=== PATIENT | male | born 1955 | race African-American/Black ===

== ENCOUNTER 2018-07-23 00:35 | Inpatient (IN) | payer OTHER ==
[2018-07-23 01:23] LABS: INR-International Normal Ratio 1.1; PTT 29.4 SEC (22.9-36.1); Prothrombin Time 14.5 SEC (12.0-14.7)
[2018-07-23 01:24] LABS: Hemoglobin 15.3 g/dL (14.0-18.0); Mean Corpuscular HGB CONC 30.5 g/dL (32.0-36.0); Mean Corpuscular Hemoglobin 28.5 pg (27.0-31.0); Mean Corpuscular Volume 93.4 fL (78.0-98.0); Mean Platelet Volume 6.9 fL (7.4-10.4); Platelet Count 260 thou/uL (130-400); RBC Distribution Width 12.8 % (11.5-14.5); Red Blood Cell (RBC) Count 5.35 mill/uL (4.70-6.10); White Blood Cell (WBC) Count 18.1 thou/uL (4.8-10.8)
[2018-07-23 01:36] LABS: ALT (SGPT) 37 U/L (8-55); AST (SGOT) 27 U/L (5-34); Alkaline Phosphatase 76 U/L (40-150); Anion Gap 17 mmol/L (10-20); BUN (Urea Nitrogen) 14 mg/dL (8.4-25.7); Band 24 % (5-11); Bilirubin, Total 0.3 mg/dL (0.2-1.2); Calc. Creatinine Clearance 0 mL/min (70-130); Calcium 9.5 mg/dL (7.8-10.44); Carbon Dioxide 22 mmol/L (23-31); Chloride 106 mmol/L (98-107); Estimated GFR-MDRD 59; Globulin 4.1 g/dL (2.4-3.5); Glucose 112 mg/dL (80-115); Lipase 75 U/L (8-78); Lymphocytes 4 % (21-51); MDiff Complete? YES; Monocytes 3 % (0-10); Neutrophil 69 % (42-75); Potassium 4.7 mmol/L (3.5-5.1); Protein, Total 8.1 g/dL (5.8-8.1); Sodium 140 mmol/L (136-145)
[2018-07-23] MEDS ORDERED: Piperacillin/Tazobactam 4.5 GM VIAL ONE (01:47)
[2018-07-23] MEDS ORDERED: Ketorolac Tromethamine 30 MG/ML VIAL ONE (02:31)
[2018-07-23] MEDS ORDERED: Clindamycin/D5W 900 mg/50 ml Premix Bag ONE (03:16)
[2018-07-23 04:13] VITALS: BMI 27.0
[2018-07-23] MEDS ORDERED: Acetaminophen 325 MG TAB PO PRN ×2 (05:01→07:31)
[2018-07-23] MEDS ORDERED: Ondansetron PF 4 MG/2 ML Vial IVP PRN (05:01)
[2018-07-23] MEDS ORDERED: Ondansetron ODT 4 MG TAB SL PRN (05:01)
[2018-07-23] MEDS ORDERED: Bisacodyl 10 MG SUPP PR PRN (07:31)
[2018-07-23] MEDS ORDERED: Diabetic Tussin 200 MG/10 ML UDCUP PO PRN (07:31)
[2018-07-23] MEDS ORDERED: Eucerin (Mineral Oil/Petrolatum,White) 30 gm Jar TOP PRN (07:31)
[2018-07-23] MEDS ORDERED: Bisacodyl 5 MG TAB PO PRN (07:31)
[2018-07-23] MEDS ORDERED: hydrALAZINE 20 MG/ML VIAL SLOW IVP PRN (07:31)
[2018-07-23] MEDS ORDERED: Artificial Tears 18 DROP/0.9 ML EA EYE PRN (07:31)
[2018-07-23] MEDS ORDERED: Loratadine 10 MG TAB PO PRN (07:31)
[2018-07-23] MEDS ORDERED: Senokot S 8.6-50 MG TAB PO PRN (07:31)
[2018-07-23] MEDS ORDERED: Zolpidem Tartrate 5 MG TAB PO PRN (07:31)
[2018-07-23] MEDS ORDERED: Calcium Carbonate 500 MG ChewTAB PO PRN (07:31)
[2018-07-23] MEDS ORDERED: Loperamide HCl 2 MG CAP PO PRN ×2 (07:31)
[2018-07-23] MEDS ORDERED: Sodium Chloride 0.65% Nasal 44 ML BOT EA NARE PRN (07:31)
[2018-07-23] MEDS ORDERED: Cepastat Lozenges 1 LOZ PO PRN (07:31)
[2018-07-23] MEDS ORDERED: Morphine 4 MG/ML VIAL SLOW IVP PRN (07:31)
[2018-07-23] MEDS ORDERED: Piperacillin/Tazobactam 4.5 GM in Sodium Chloride 0.9% 100 ML IVPB SCH (08:00)
--- NOTE | 2018-07-23 08:14 | RAD ---
PORTABLE UPRIGHT FRONTAL CHEST: Date: 07/23/18 COMPARISON: None. HISTORY: Chest pain, leg pain. FINDINGS: No pneumothorax, pleural fluid, focal consolidation, or alveolar edema. Heart and mediastinal contour s unremarkable. IMPRESSION: No acute findings. POS: [facility]
[2018-07-23] MEDS: Piperacillin/Tazobactam 4.5 GM in Sodium Chloride 0.9% 100 ML IVPB SCH ×3 (09:00→20:58)
[2018-07-23] MEDS: Saccharomyces boulardii 250 MG CAP PO SCH (09:00)
[2018-07-23] MEDS ORDERED: DARUNAVIR ETHANOLATE PO SCH (09:00)
[2018-07-23] MEDS: DULoxetine 60 MG CAP PO SCH (09:00)
[2018-07-23] MEDS: Enoxaparin Sodium 40 MG/0.4 ML SYRINGE SC SCH (09:00)
[2018-07-23] MEDS: Sodium Chloride 0.9% 1,000 ML IV SCH ×3 (09:00→23:27)
[2018-07-23] MEDS: Famotidine 20 MG TAB PO SCH ×2 (09:00→20:58)
[2018-07-23] MEDS ORDERED: Vancomycin HCl 750 MG in Sodium Chloride 0.9% 250 ML 250 ML IVPB SCH (09:00)
[2018-07-23] MEDS: Raltegravir Potassium 400 MG TAB PO SCH (09:00)
[2018-07-23] MEDS: HYDROcodone/Acetaminophen 10/325 mg Tablet PO PRN ×3 (09:04→18:20)
[2018-07-23 09:13] LABS: CKMB 0.9 ng/mL (0-6.6); Troponin I Less than 0.010 ng/mL (< 0.028)
[2018-07-23] MEDS ORDERED: Sodium Chloride 0.9% 500 ML IV SCH (09:30)
[2018-07-23 12:08] LABS: CRP (Inflammatory) 6.44 mg/dL (= or < 0.5); Uric Acid 5.8 mg/dL (3.5-7.2)
--- NOTE | 2018-07-23 12:40 | HP ---
PRIMARY CARE PHYSICIAN: The patient is from [facility], [facility] Call admission. REASON FOR ADMISSION: Sepsis, hypotension, chest pain, and cellulitis. HISTORY OF PRESENT ILLNESS: A 63-year-old -[place] male, who has underlying history of HIV, dyslipidemia, benign enlargement of prostate, and hypotension, who came to emergency room last night with complaint of chest pain. The patient's chest pain is left-sided, pleuritic in nature, sharp dull ache, 5/10 in intensity associated with cough. He denies any diaphoresis, nausea, vomiting, palpitation, and syncope. In the emergency room, he was initially tachycardic and hypotensive with tachycardia. Pulse 120 and blood pressure 95/70. He was also febrile 101.3. Since yesterday, the patient was also having right-sided leg pain. He was not able to put weight on his right foot. He was having extreme amount of pain. He denies any calf tenderness. He denies any immobilization. He denies any hemoptysis. He denies any orthopnea, PND, or leg swelling. PAST MEDICAL HISTORY: HIV, chronic hep C, hypertension, Kaposi sarcoma, dyslipidemia, asthma, osteoarthritis, chronic low back pain, and gastroesophageal reflux disease. PAST SURGICAL HISTORY: The patient is not able to provide any previous surgical history. PAST PSYCHIATRIC HISTORY: Reviewed and negative. SOCIAL HISTORY: The patient lives at [facility]. No history of tobacco, alcohol, or illicit drug abuse. FAMILY HISTORY: The patient denies any strong family history of coronary artery disease, stroke, or cancer. ALLERGIES: CHADD INHIBITOR, IBUPROFEN, AND SULFA DRUGS. CURRENT HOME MEDICATIONS: 1. Amlodipine 5 mg daily. 2. Dapsone 100 mg daily. 3. Prezista 1 tablet daily. 4. Cymbalta 60 mg p.o. daily. 5. Lasix 20 mg daily. 6. Pravastatin 40 mg p.o. at bedtime. 7. Raltegravir 800 mg p.o. daily. 8. Ritonavir 1 capsule p.o. daily. 9. Tenofovir 300 mg p.o. daily. 10. Terazosin 2 mg p.o. daily. EMERGENCY ROOM COURSE: The patient received Tylenol, clindamycin, Toradol, vancomycin, Zosyn, and IV fluid. REVIEW OF SYSTEMS: REVIEW OF SYSTEMS: CONSTITUTIONAL: Negative for weight loss or gain, ability to conduct usual activities. SKIN: Negative for rash, itching. EYES: Negative for double vision, pain. ENT/MOUTH: Negative for nose bleeding, neck stiffness, pain, tenderness. CARDIOVASCULAR: Negative for palpitations, dyspnea on exertion, orthopnea. RESPIRATORY: Negative for shortness of breath, wheezing, cough, hemoptysis, fever or night sweats. GASTROINTESTINAL: Negative for poor appetite, abdominal pain, heartburn, nausea, vomiting, constipation, or diarrhea. GENITOURINARY: Negative for urgency, frequency, dysuria, nocturia. MUSCULOSKELETAL: Negative for pain, swelling. NEUROLOGIC/PSYCHIATRIC: Negative for anxiety, depression. ALLERGY/IMMUNOLOGIC: Negative for skin rash, bleeding tendency. Please see my HPI for pertinent positives and negatives. All other review of systems reviewed and negative except as mentioned in the HPI. PHYSICAL EXAMINATION: VITAL SIGNS: Currently , lowest blood pressure after admission 78/58, pulse 75, respiratory rate 20, saturation 93% on room air, temperature 98.1, but in the emergency room T maximum 101.3. GENERAL: The patient is currently alert, awake. No obvious acute distress. HEENT: Head; normocephalic and atraumatic. Eyes; pupils are round, reactive to light. Extraocular muscle intact. ENT, oropharynx within normal limits. Moist mucous membranes. No oral lesion. No pharyngeal erythema. No exudate. NECK: Supple. No JVD. No thyromegaly. No carotid bruit. LUNGS: Clear to auscultation without any rhonchi or rales. CARDIAC: S1 and S2 regular. No murmur. No gallop. No rub. ABDOMEN: Soft. Bowel sounds present. Nontender. Nondistended. No organomegaly. No mass. No suprapubic tenderness. BACK: Unremarkable. No CVA tenderness. EXTREMITIES: Upper extremities, passive movement of all joints are normal. Lower extremity, no edema. The patient does have mild tenderness in the right foot and right lower extremity with skin rash noted. PSYCHIATRIC: Normal affect. NEUROLOGIC: Nonfocal examination. SIGNIFICANT LABORATORY DATA: CBC; WBC 18.1, hemoglobin 15.3, and platelet 260 with bandemia. INR 1.1. BMP; sodium 140, potassium 4.7, chloride 106, carbon dioxide 22, BUN 14, creatinine 1.46, glucose 112, and calcium 9.5. Lactic acid 3.0. LFT; AST 27, ALT 37, alkaline phosphatase 76, albumin 4.0, lipase 75, cortisols 14.1. Cardiac enzyme negative x2. BNP 20.2. LFT normal. ASSESSMENT AND PLAN: 1. Sepsis with acute organ dysfunction, source of infection is unclear at this point, but suspecting cellulitis. The patient has leukocytosis with bandemia, lactic acidosis, acute kidney failure, and high-grade fever with tachycardia and hypotension on admission. 2. Sepsis associated with hypotension, most likely related with hypotension, but the patient is also complaining of chest pain and that is why we will rule out thromboembolic disorder. We will do CT angiography. His EKG is showing sinus tachycardia and repeat EKG is not showing any ischemic changes. His cardiac enzymes are negative and BNP is normal. 3. Acute kidney injury. The patient will be given IV fluid and we will monitor renal function. 4. Lactic acidosis. We will repeat lactic acid level tomorrow, likely due to sepsis. 5. Human immunodeficiency virus. The patient's HIV medication will be continued as per [facility] and we will consult Dr. Zaldivar for his opinion. 6. Dyslipidemia. Continue pravastatin 40 mg p.o. at bedtime. 7. Peripheral neuropathy. Continue Cymbalta 60 mg p.o. daily. 8. Hypertension, but currently low blood pressure. We will hold on antihypertensive medication. 9. Deep venous thrombosis prophylaxis. Lovenox 40 mg subcu daily prophylaxis, Pepcid 20 mg p.o. daily. CODE STATUS: The patient is full code. DISPOSITION PLAN: Based on clinical course, we will consult Dr. Zaldivar. We are expecting the patient's stay in hospital more than 2 midnights. Plan of care discussed with the patient in detail and he expressed his understanding. Job ID: [id number]
[2018-07-23 13:09] LABS: CKMB 0.8 ng/mL (0-6.6); Troponin I Less than 0.010 ng/mL (< 0.028)
--- NOTE | 2018-07-23 13:43 | CT ---
CT PULMONARY ANGIOGRAM WITH IV CONTRAST AND 3D POSTPROCESSING: Date: 07/23/18 HISTORY: Chest pain. FINDINGS: No filling defects are seen in the contrast opacified pulmonary vasculature to suggest pulmonary embo lism. The thoracic aorta is opacified without aneurysm or dissection. No pleural or pericardial effus ions are seen. Bibasilar infiltrates versus atelectatic changes are present. No pneumothoraces are id entified. There is bilateral gynecomastia. Mild degenerative changes are present in the spine. IMPRESSION: No CT evidence of pulmonary embolism. POS: [facility]
--- NOTE | 2018-07-23 14:11 | EKG ---
Test Reason : C/O CHEST PAIN Blood Pressure : / mmHG Vent. Rate : 082 BPM Atrial Rate : 082 BPM P-R Int : 180 ms QRS Dur : 086 ms QT Int : 392 ms P-R-T Axes : 052 055 067 degrees QTc Int : 457 ms Normal sinus rhythm Normal ECG When compared with ECG of 30-JUL-2010 14:09, No significant change was found Confirmed by DR. Mark GOMEZ ([id number]) on 07/23/2018 2:11:26 PM Referred By: ENOCH Confirmed By:DR. Mark GOMEZ
[2018-07-23 16:06] LABS: Troponin I Less than 0.010 ng/mL (< 0.028)
[2018-07-23] MEDS ORDERED: Iopamidol 370 76% 100 ML VIAL ONE (16:59)
[2018-07-23] MEDS: Ondansetron ODT 4 MG TAB PO PRN (20:58)
[2018-07-23] MEDS: Atorvastatin Calcium 10 MG TAB PO SCH (20:59)
[2018-07-24] MEDS: HYDROcodone/Acetaminophen 10/325 mg Tablet PO PRN ×4 (00:25→18:21)
[2018-07-24] MEDS: Piperacillin/Tazobactam 4.5 GM in Sodium Chloride 0.9% 100 ML IVPB SCH (02:29)
[2018-07-24] MEDS: Ondansetron ODT 4 MG TAB PO PRN ×2 (02:33→20:52)
[2018-07-24] MEDS ORDERED: Vancomycin HCl 1.75 GM in Sodium Chloride 0.9% 500 ML IVPB SCH (03:00)
[2018-07-24 06:12] LABS: #Lymphocytes 1.2 thou/uL (1.20-3.40); #Monocytes 0.8 thou/uL (0.11-0.59); #Neutrophils 13.1 thou/uL (1.40-6.50); %Basophils 0.1 % (0.0-1.0); %Eosinophils 0.2 % (0.0-10.0); %Lymphocytes 7.7 % (21.0-51.0); %Monocytes 5.4 % (0.0-10.0); %Neutrophils 86.7 % (42.0-75.0); Hemoglobin 13.3 g/dL (14.0-18.0); Mean Corpuscular HGB CONC 32.1 g/dL (32.0-36.0); Mean Corpuscular Hemoglobin 30.3 pg (27.0-31.0); Mean Corpuscular Volume 94.3 fL (78.0-98.0); Mean Platelet Volume 7.3 fL (7.4-10.4); Platelet Count 221 thou/uL (130-400); RBC Distribution Width 12.9 % (11.5-14.5); Red Blood Cell (RBC) Count 4.39 mill/uL (4.70-6.10); White Blood Cell (WBC) Count 15.1 thou/uL (4.8-10.8)
[2018-07-24 06:44] LABS: ALT (SGPT) 28 U/L (8-55); AST (SGOT) 22 U/L (5-34); Alkaline Phosphatase 60 U/L (40-150); Anion Gap 11 mmol/L (10-20); BUN (Urea Nitrogen) 13 mg/dL (8.4-25.7); Bilirubin, Total 0.3 mg/dL (0.2-1.2); Calc. Creatinine Clearance 68 mL/min (70-130); Calcium 7.9 mg/dL (7.8-10.44); Carbon Dioxide 20 mmol/L (23-31); Chloride 108 mmol/L (98-107); Estimated GFR-MDRD 60; Glucose 139 mg/dL (80-115); Sodium 135 mmol/L (136-145)
[2018-07-24] MEDS: Sodium Chloride 0.9% 1,000 ML IV SCH ×3 (08:22→20:52)
[2018-07-24] MEDS: cefTRIAXone\\ROCEPHIN 1 GM in Sodium Chloride 0.9% 100 ML IVPB SCH (08:24)
[2018-07-24] MEDS: Raltegravir Potassium 400 MG TAB PO SCH (08:39)
[2018-07-24] MEDS: Saccharomyces boulardii 250 MG CAP PO SCH (08:39)
[2018-07-24] MEDS: DULoxetine 60 MG CAP PO SCH (08:41)
[2018-07-24] MEDS: Famotidine 20 MG TAB PO SCH ×2 (08:41→20:51)
[2018-07-24] MEDS: Enoxaparin Sodium 40 MG/0.4 ML SYRINGE SC SCH (08:42)
--- NOTE | 2018-07-24 10:39 | PDOC.PN ---
- Subjective Encounter Start Date: 07/24/18 Encounter Start Time: 07:00 -: old records requested/rev he has more foot pain, he has fever, has cough Patient seen and examined. No overnight events - Objective Resuscitation Status - Order Detail: 07/23/18 07:26 Resuscitation Status Routine Resuscitation Status: FULL: Full Resuscitation MAR Reviewed: Yes Vital Signs & Weight: Vital Signs (12 hours) Temp Pulse Resp BP Pulse Ox 07/24/18 08:01 99.8 F H 89 20 98/73 94 L 07/24/18 05:32 99.6 F 07/24/18 04:00 100.2 F H 97 19 95/55 L 90 L 07/24/18 03:47 93 L 07/24/18 00:00 98.7 F 90 19 109/75 93 L Weight Weight 199 lb 6.4 oz I&O: 07/23/18 07/24/18 07/25/18 06:59 06:59 06:59 Intake Total 2500 Balance 2500 Result Diagrams: 07/24/18 05:28 07/24/18 05:28 EKG Reviewed by me: Yes (nsr) Phys Exam - Physical Examination Constitutional: NAD HEENT: PERRLA, moist MMs, sclera anicteric Neck: no JVD, supple Respiratory: no wheezing, no rales, no rhonchi Cardiovascular: RRR, no significant murmur, no rub Gastrointestinal: soft, non-tender, no distention, positive bowel sounds Musculoskeletal: no edema, pulses present right ankle swelling and cellulitis, Neurological: non-focal, normal sensation, moves all 4 limbs Lymphatic: no nodes Psychiatric: normal affect, A&O x 3 Skin: no rash, normal turgor Dx/Plan (1) Acute kidney injury Code(s): N17.9 - ACUTE KIDNEY FAILURE, UNSPECIFIED Status: Acute (2) Bacteremia due to Streptococcus Code(s): R78.81 - BACTEREMIA; B95.5 - UNSP STREPTOCOCCUS THE CAUSE OF DISEASES CLASSD ELSWHR Status: Acute (3) Cellulitis of extremity Code(s): L03.119 - CELLULITIS OF UNSPECIFIED PART OF LIMB Status: Acute Qualifiers: Site of cellulitis of extremity: lower extremity Laterality: right Qualified Code(s): L03.115 - Cellulitis of right lower limb Comment: ankle and foot (4) Chest pain Code(s): R07.9 - CHEST PAIN, UNSPECIFIED Status: Resolved (5) Hypotension Status: Acute (6) Lactic acidosis Code(s): E87.2 - ACIDOSIS Status: Acute (7) Sepsis with acute organ dysfunction Code(s): A41.9 - SEPSIS, UNSPECIFIED ORGANISM; R65.20 - SEVERE SEPSIS WITHOUT SEPTIC SHOCK Status: Acute (8) Dyslipidemia Code(s): E78.5 - HYPERLIPIDEMIA, UNSPECIFIED Status: Chronic (9) HIV (human immunodeficiency virus infection) Code(s): B20 - HUMAN IMMUNODEFICIENCY VIRUS [HIV] DISEASE Status: Chronic (10) Hypertension Code(s): I10 - ESSENTIAL (PRIMARY) HYPERTENSION Status: Chronic (11) Peripheral neuropathy Code(s): G62.9 - POLYNEUROPATHY, UNSPECIFIED Status: Chronic - Plan cont current plan of care, continue antibiotics * continue IVF * change antibiotics to rocephin and levaquin * ID to see * get xray right ankle * pain control * medication reviewed as below * symptomatic treatment * repeat labs tomorrow. Review of Systems - Review of Systems Constitutional: fever. negative: chills, sweats, weakness, malaise, other ENT: negative: Ear Pain, Ear Discharge, Nose Pain, Nose Discharge, Nose Congestion, Mouth Pain, Mouth Swelling, Throat Pain, Throat Swelling, Other Respiratory: negative: Cough, Dry, Shortness of Breath, Hemoptysis, SOB with Excertion, Pleuritic Pain, Sputum, Wheezing Cardiovascular: negative: chest pain, palpitations, orthopnea, paroxysmal nocturnal dyspnea, edema, light headedness, other Gastrointestinal: negative: Nausea, Vomiting, Abdominal Pain, Diarrhea, Constipation, Melena, Hematochezia, Other Genitourinary: negative: Dysuria, Frequency, Incontinence, Hematuria, Retention , Other Musculoskeletal: Leg Pain, Foot Pain. negative: Neck Pain, Shoulder Pain, Arm Pain, Back Pain, Hand Pain, Other - Medications/Allergies Allergies/Adverse Reactions: Allergies Allergy/AdvReac Type Severity Reaction Status Date / Time CHADD Inhibitors Allergy Verified 07/23/18 05:00 ibuprofen Allergy Verified 07/23/18 05:00 Sulfa (Sulfonamide Allergy Verified 07/23/18 05:00 Antibiotics) Medications: Current Medications Acetaminophen (Tylenol) 650 mg PO Q4H PRN PRN Reason: Headache/Fever/Mild Pain (1-3) Last Admin: 07/24/18 02:46 Dose: 650 mg Hydrocodone Bitart/Acetaminophen (Peck 10/325) 1 tab PO Q4H PRN PRN Reason: Moderate Pain (4-6) Last Admin: 07/24/18 06:19 Dose: 1 tab Artificial Tears (Tears Naturale) 2 drop EA EYE PRN PRN PRN Reason: Dry Eyes Atorvastatin Calcium (Lipitor) 10 mg PO [facility] Last Admin: 07/23/18 20:59 Dose: 10 mg Bisacodyl (Dulcolax) 10 mg HI DAILYPRN PRN PRN Reason: Constipation Bisacodyl (Dulcolax) 10 mg PO DAILYPRN PRN PRN Reason: Constipation Calcium Carbonate (Tums) 1,000 mg PO Q4H PRN PRN Reason: Heartburn or Indigestion Dapsone (Dapsone) 100 mg PO DAILY [facility] Last Admin: 07/24/18 08:41 Dose: 100 mg Duloxetine HCl (Cymbalta) 60 mg PO DAILY [facility] Last Admin: 07/24/18 08:41 Dose: 60 mg Enoxaparin Sodium (Lovenox) 40 mg SC 0900 [facility] Last Admin: 07/24/18 08:42 Dose: 40 mg Famotidine (Pepcid) 20 mg PO BID [facility] Last Admin: 07/24/18 08:41 Dose: 20 mg Guaifenesin (Robitussin Sf) 200 mg PO Q4H PRN PRN Reason: Cough Hydralazine HCl (Apresoline) 10 mg SLOW IVP Q4H PRN PRN Reason: SBP > 180 and HR < 70 Sodium Chloride (Normal Saline 0.9%) 1,000 mls @ 125 mls/hr IV .Q8H [facility] Last Admin: 07/24/18 08:22 Dose: 1,000 mls Ceftriaxone Sodium 1 gm/ (Sodium Chloride) 100 mls @ 200 mls/hr IVPB 0900 [facility] Last Admin: 07/24/18 08:24 Dose: 100 mls Levofloxacin 500 mg/ Device 100 mls @ 100 mls/hr IVPB 0800 [facility] Last Admin: 07/24/18 08:25 Dose: 100 mls Loperamide HCl (Imodium) 2 mg PO PRN PRN PRN Reason: Diarrhea/Loose Stools Loratadine (Claritin) 10 mg PO DAILYPRN PRN PRN Reason: Sinus Symptoms Mineral Oil/White Petrolatum (Eucerin Cream) 0 gm TOP BIDPRN PRN PRN Reason: Dry Skin Morphine Sulfate (Morphine) 4 mg SLOW IVP Q4H PRN PRN Reason: Severe Pain (7-10) Ondansetron HCl (Zofran Odt) 4 mg PO Q6H PRN PRN Reason: Nausea/Vomiting Last Admin: 07/24/18 02:33 Dose: 4 mg Ondansetron HCl (Zofran) 4 mg IVP Q6H PRN PRN Reason: Nausea/Vomiting Raltegravir (Isentress) 800 mg PO DAILY [facility] Last Admin: 07/24/18 08:39 Dose: 800 mg Ritonavir (Norvir) 100 mg PO DAILY [facility] Last Admin: 07/24/18 08:42 Dose: 100 mg Saccharomyces Boulardii (Florastor) 250 mg PO DAILY [facility] Last Admin: 07/24/18 08:39 Dose: 250 mg Senna/Docusate Sodium (Senokot S) 2 tab PO BIDPRN PRN PRN Reason: Constipation Sodium Chloride ([place] Nasal [place] 0.65%) 0 ml EA NARE QIDPRN PRN PRN Reason: Nasal Congestion Tenofovir Disoproxil Fumarate (Viread) 300 mg PO DAILY [facility] Last Admin: 07/24/18 08:39 Dose: 300 mg Throat Lozenges (Cepastat Lozenges) 1 luis PO Q2H PRN PRN Reason: Sore Throat Zolpidem Tartrate (Ambien) 5 mg PO HSPRN PRN PRN Reason: Insomnia
--- NOTE | 2018-07-24 11:53 | RAD ---
THREE VIEWS RIGHT ANKLE: Comparison: None. History: Right ankle pain and swelling. FINDINGS: Three views of the right ankle shows diffuse soft tissue swelling, more prominent medially. There is no evidence of fracture or dislocation. No degenerative changes are seen. IMPRESSION: Soft tissue swelling without underlying osseous abnormality. POS: [facility]
[2018-07-24 12:30] LABS: Lactic Acid 1.5 mmol/L (0.5-2.2)
[2018-07-24] MEDS: Clindamycin/D5W 900 MG in Premix Bag 1 BAG IVPB SCH (18:21)
--- NOTE | 2018-07-24 19:16 | CON ---
DATE OF CONSULTATION: 07/24/2018 REASON FOR CONSULTATION: HIV with cellulitis. HISTORY OF PRESENT ILLNESS: A 63-year-old, who has a history of chronic hep C with no prior treatment; chronic HIV infection, on adequate anti-retroviral therapy, unknown CD4 cell count, viral load, Kaposi sarcoma in the past; asthma; osteoarthritis; and GERD, who presented with pain in the right lower extremity for the past few days, some chest pain, some cough, general malaise, tachycardia, and hypotension. Initial exam showed respiratory rate of 20, pulse 75, temperature 98.1, and the maximum temperature in the emergency room was 101.3, initially he did not appear in distress. Lungs were clear. Heart exam normal. Abdomen was soft. Lower extremities with tenderness in the right foot, right lower extremity with erythema. LABORATORY DATA: White cell count 18,000 and hemoglobin 15. Creatinine was 1.46. Lactic acid 3. The patient has been treated with pain medication, ceftriaxone and levofloxacin. He is also on his anti-retroviral therapy. Currently, he is lying in bed and is still with quite a bit of pain in the right lower extremity. No headaches. No visual symptoms, sore throat, odynophagia, or dysphagia. No cough or sputum production. No chest pain. No abdominal pain or diarrhea. No genitourinary symptoms. No neurological symptoms. PAST MEDICAL HISTORY: Chronic hep C with no history of treatment; chronic HIV infection with adequate anti-retroviral therapy, but unknown CD4 cell count, viral load; previous Kaposi sarcoma; asthma; osteoarthritis; and low back pain. SOCIAL HISTORY: [facility] No history of smoking. FAMILY HISTORY: Noncontributory. ALLERGIES: CHADD INHIBITOR, IBUPROFEN, AND SULFA DRUGS. CURRENT MEDICATIONS: I have discussed above, in addition to antibiotics he is on tenofovir, Isentress. PHYSICAL EXAMINATION: VITAL SIGNS: T-max 100.2, BP 120/90, pulse 91, respirations 18, and O2 saturation 90% to 94%. SKIN: Shows the area of erythema of the right ankle and leg with swelling. He has a drop foot on the right side. Range of motion of the ankle elicits quite a bit of pain. He has areas of onycholysis, hyperkeratosis in the lower extremities. The patient has a peripheral IV access and is voiding in the urinal. No lymphadenopathy. HEENT: Ocular movements conjugate. Oral cavity moist with still quite a few teeth in place with some decay. NECK: Supple. Jugular venous distention. No thyromegaly. LUNGS: Symmetric. Clear breath sounds. HEART: S1 and S2. Regular rate. No S3 or S4. ABDOMEN: Soft, not distended or tender. No ascites. No bladder distention. No genital abnormalities. EXTREMITIES: Pulses are 1+ in dorsalis pedis. Cognitive functions normal. LABORATORY DATA: White cell count down to 15,000, hemoglobin 13, and platelets 221. Sodium 135, creatinine 1.45 with normal liver profile. Albumin 3.0. Microbiology with one set of blood cultures with beta-hemolytic Streptococcus. ASSESSMENT: Chronic hepatitis C and human immunodeficiency virus infection, now with what appears to be a beta-hemolytic Streptococcus cellulitis. Septic arthritis of right ankle is not completely ruled out. Continue Rocephin and add clindamycin. Discontinue levofloxacin. Monitor progress. May need arthrocentesis or MRI of the extremity depending on clinical progress. No evidence of necrotizing features at this point in time. Job ID: [id number]
[2018-07-24] MEDS: Atorvastatin Calcium 10 MG TAB PO SCH (20:51)
[2018-07-25] MEDS: Clindamycin/D5W 900 MG in Premix Bag 1 BAG IVPB SCH ×3 (01:34→17:38)
[2018-07-25] MEDS: HYDROcodone/Acetaminophen 10/325 mg Tablet PO PRN ×5 (01:39→21:24)
[2018-07-25 04:44] LABS: Anion Gap 11 mmol/L (10-20); BUN (Urea Nitrogen) 10 mg/dL (8.4-25.7); CRP (Inflammatory) 20.67 mg/dL (= or < 0.5); Calc. Creatinine Clearance 83 mL/min (70-130); Calcium 8.7 mg/dL (7.8-10.44); Carbon Dioxide 20 mmol/L (23-31); Chloride 107 mmol/L (98-107); Estimated GFR-MDRD 75; Glucose 99 mg/dL (80-115); Potassium 4.2 mmol/L (3.5-5.1); Sodium 134 mmol/L (136-145)
[2018-07-25 05:27] LABS: #Eosinphils 0.1 thou/uL (0.0-0.7); #Lymphocytes 1.2 thou/uL (1.20-3.40); #Monocytes 0.7 thou/uL (0.11-0.59); #Neutrophils 9.9 thou/uL (1.40-6.50); %Basophils 0.2 % (0.0-1.0); %Eosinophils 0.7 % (0.0-10.0); %Monocytes 5.8 % (0.0-10.0); %Neutrophils 83.2 % (42.0-75.0); Hemoglobin 13.9 g/dL (14.0-18.0); Mean Corpuscular HGB CONC 31.6 g/dL (32.0-36.0); Mean Corpuscular Hemoglobin 29.2 pg (27.0-31.0); Mean Corpuscular Volume 92.4 fL (78.0-98.0); Mean Platelet Volume 7.3 fL (7.4-10.4); Platelet Count 187 thou/uL (130-400); RBC Distribution Width 12.7 % (11.5-14.5); RBC Morphology Normal; Red Blood Cell (RBC) Count 4.77 mill/uL (4.70-6.10); White Blood Cell (WBC) Count 11.9 thou/uL (4.8-10.8)
[2018-07-25] MEDS: Saccharomyces boulardii 250 MG CAP PO SCH (08:56)
[2018-07-25] MEDS: DULoxetine 60 MG CAP PO SCH (08:56)
[2018-07-25] MEDS: Famotidine 20 MG TAB PO SCH ×2 (08:56→21:23)
[2018-07-25] MEDS: Enoxaparin Sodium 40 MG/0.4 ML SYRINGE SC SCH (08:56)
[2018-07-25] MEDS: Raltegravir Potassium 400 MG TAB PO SCH (09:17)
[2018-07-25] MEDS: cefTRIAXone\\ROCEPHIN 1 GM in Sodium Chloride 0.9% 100 ML IVPB SCH (09:18)
[2018-07-25] MEDS: Ondansetron ODT 4 MG TAB PO PRN (09:32)
[2018-07-25] MEDS ORDERED: Tamsulosin HCl 0.4 MG CAP PO SCH (10:00)
--- NOTE | 2018-07-25 10:30 | PDOC.PN ---
- Subjective Encounter Start Date: 07/25/18 Encounter Start Time: 07:00 pt has frequency of urination and hesitancy, no retention BP has improved still has leg pain - Objective Resuscitation Status - Order Detail: 07/23/18 07:26 Resuscitation Status Routine Resuscitation Status: FULL: Full Resuscitation MAR Reviewed: Yes Vital Signs & Weight: Vital Signs (12 hours) Temp Pulse Resp BP Pulse Ox 07/25/18 07:50 98.6 F 89 16 120/86 90 L 07/25/18 03:58 98.6 F 101 H 20 149/93 H 92 L 07/25/18 00:00 99.1 F 102 H 19 150/80 H 93 L Weight Weight 199 lb 6.4 oz I&O: 07/24/18 07/25/18 07/26/18 06:59 06:59 06:59 Intake Total 2500 Balance 2500 Result Diagrams: 07/25/18 04:22 07/25/18 04:22 EKG Reviewed by me: Yes (nsr) Phys Exam - Physical Examination Constitutional: NAD HEENT: PERRLA, moist MMs, sclera anicteric Neck: no JVD, supple Respiratory: no wheezing, no rales, no rhonchi Cardiovascular: RRR, no significant murmur, no rub Gastrointestinal: soft, non-tender, no distention, positive bowel sounds Musculoskeletal: no edema, pulses present right leg cellulitis Neurological: non-focal, normal sensation, moves all 4 limbs Lymphatic: no nodes Psychiatric: normal affect, A&O x 3 Skin: no rash, normal turgor Dx/Plan (1) Acute kidney injury Code(s): N17.9 - ACUTE KIDNEY FAILURE, UNSPECIFIED Status: Acute (2) Bacteremia due to Streptococcus Code(s): R78.81 - BACTEREMIA; B95.5 - UNSP STREPTOCOCCUS THE CAUSE OF DISEASES CLASSD ELSWHR Status: Acute (3) Cellulitis of extremity Code(s): L03.119 - CELLULITIS OF UNSPECIFIED PART OF LIMB Status: Acute Qualifiers: Site of cellulitis of extremity: lower extremity Laterality: right Qualified Code(s): L03.115 - Cellulitis of right lower limb Comment: ankle and foot (4) Chest pain Code(s): R07.9 - CHEST PAIN, UNSPECIFIED Status: Resolved (5) Hypotension Status: Acute (6) Lactic acidosis Code(s): E87.2 - ACIDOSIS Status: Acute (7) Sepsis with acute organ dysfunction Code(s): A41.9 - SEPSIS, UNSPECIFIED ORGANISM; R65.20 - SEVERE SEPSIS WITHOUT SEPTIC SHOCK Status: Acute (8) Dyslipidemia Code(s): E78.5 - HYPERLIPIDEMIA, UNSPECIFIED Status: Chronic (9) HIV (human immunodeficiency virus infection) Code(s): B20 - HUMAN IMMUNODEFICIENCY VIRUS [HIV] DISEASE Status: Chronic (10) Hypertension Code(s): I10 - ESSENTIAL (PRIMARY) HYPERTENSION Status: Chronic (11) Peripheral neuropathy Code(s): G62.9 - POLYNEUROPATHY, UNSPECIFIED Status: Chronic (12) BPH with obstruction/lower urinary tract symptoms Code(s): N40.1 - BENIGN PROSTATIC HYPERPLASIA WITH LOWER URINARY TRACT SYMP; N13.8 - OTHER OBSTRUCTIVE AND REFLUX UROPATHY Status: Acute (13) Chronic hepatitis C Code(s): B18.2 - CHRONIC VIRAL HEPATITIS C Status: Chronic - Plan cont current plan of care, continue antibiotics * keep leg elevated on right side * chech UA and start empiric flomax * continue IV antibiotics as per ID * DC tele * DC IVF * transfer to medical * pain control * medication reviewed as below * symptomatic treatment. Review of Systems - Review of Systems ENT: negative: Ear Pain, Ear Discharge, Nose Pain, Nose Discharge, Nose Congestion, Mouth Pain, Mouth Swelling, Throat Pain, Throat Swelling, Other Respiratory: negative: Cough, Dry, Shortness of Breath, Hemoptysis, SOB with Excertion, Pleuritic Pain, Sputum, Wheezing Cardiovascular: negative: chest pain, palpitations, orthopnea, paroxysmal nocturnal dyspnea, edema, light headedness, other Gastrointestinal: negative: Nausea, Vomiting, Abdominal Pain, Diarrhea, Constipation, Melena, Hematochezia, Other Genitourinary: Frequency. negative: Dysuria, Incontinence, Hematuria, Retention , Other Musculoskeletal: Leg Pain. negative: Neck Pain, Shoulder Pain, Arm Pain, Back Pain, Hand Pain, Foot Pain, Other - Medications/Allergies Allergies/Adverse Reactions: Allergies Allergy/AdvReac Type Severity Reaction Status Date / Time CHADD Inhibitors Allergy Verified 07/23/18 05:00 ibuprofen Allergy Verified 07/23/18 05:00 Sulfa (Sulfonamide Allergy Verified 07/23/18 05:00 Antibiotics) Medications: Current Medications Acetaminophen (Tylenol) 650 mg PO Q4H PRN PRN Reason: Headache/Fever/Mild Pain (1-3) Last Admin: 07/24/18 02:46 Dose: 650 mg Hydrocodone Bitart/Acetaminophen ([place] 10/325) 1 tab PO Q4H PRN PRN Reason: Moderate Pain (4-6) Last Admin: 07/25/18 07:50 Dose: 1 tab Artificial Tears (Tears Naturale) 2 drop EA EYE PRN PRN PRN Reason: Dry Eyes Last Admin: 07/25/18 08:57 Dose: 2 drop Atorvastatin Calcium (Lipitor) 10 mg PO HS [facility] Last Admin: 07/24/18 20:51 Dose: 10 mg Bisacodyl (Dulcolax) 10 mg [place] DAILYPRN PRN PRN Reason: Constipation Bisacodyl (Dulcolax) 10 mg PO DAILYPRN PRN PRN Reason: Constipation Calcium Carbonate (Tums) 1,000 mg PO Q4H PRN PRN Reason: Heartburn or Indigestion Dapsone (Dapsone) 100 mg PO DAILY [facility] Last Admin: 07/25/18 08:56 Dose: 100 mg Duloxetine HCl (Cymbalta) 60 mg PO DAILY [facility] Last Admin: 07/25/18 08:56 Dose: 60 mg Enoxaparin Sodium (Lovenox) 40 mg SC 0900 [facility] Last Admin: 07/25/18 08:56 Dose: 40 mg Famotidine (Pepcid) 20 mg PO BID [facility] Last Admin: 07/25/18 08:56 Dose: 20 mg Guaifenesin (Robitussin Sf) 200 mg PO Q4H PRN PRN Reason: Cough Hydralazine HCl (Apresoline) 10 mg SLOW IVP Q4H PRN PRN Reason: SBP > 180 and HR < 70 Ceftriaxone Sodium 1 gm/ (Sodium Chloride) 100 mls @ 200 mls/hr IVPB 0900 [facility] Last Admin: 07/25/18 09:18 Dose: 100 mls Clindamycin Phosphate/Dextrose (900 mg/ Device) 50 mls @ 100 mls/hr IVPB 0200, 1000,1800 [facility] Last Admin: 07/25/18 10:19 Dose: 50 mls Loperamide HCl (Imodium) 2 mg PO PRN PRN PRN Reason: Diarrhea/Loose Stools Loratadine (Claritin) 10 mg PO DAILYPRN PRN PRN Reason: Sinus Symptoms Mineral Oil/White Petrolatum (Eucerin Cream) 0 gm TOP BIDPRN PRN PRN Reason: Dry Skin Morphine Sulfate (Morphine) 4 mg SLOW IVP Q4H PRN PRN Reason: Severe Pain (7-10) Ondansetron HCl (Zofran Odt) 4 mg PO Q6H PRN PRN Reason: Nausea/Vomiting Last Admin: 07/25/18 09:32 Dose: 4 mg Ondansetron HCl (Zofran) 4 mg IVP Q6H PRN PRN Reason: Nausea/Vomiting Raltegravir (Isentress) 800 mg PO DAILY [facility] Last Admin: 07/25/18 09:17 Dose: 800 mg Ritonavir (Norvir) 100 mg PO DAILY [facility] Last Admin: 07/25/18 08:57 Dose: 100 mg Saccharomyces Boulardii (Florastor) 250 mg PO DAILY [facility] Last Admin: 07/25/18 08:56 Dose: 250 mg Senna/Docusate Sodium (Senokot S) 2 tab PO BIDPRN PRN PRN Reason: Constipation Sodium Chloride ([place] Nasal [place] 0.65%) 0 ml EA NARE QIDPRN PRN PRN Reason: Nasal Congestion Tamsulosin HCl (Flomax) 0.4 mg PO DAILY [facility] Tamsulosin HCl (Flomax) 0.4 mg PO NOW [facility] Stop: 07/25/18 12:00 Last Admin: 07/25/18 10:19 Dose: 0.4 mg Tenofovir Disoproxil Fumarate (Viread) 300 mg PO DAILY [facility] Last Admin: 07/25/18 08:57 Dose: 300 mg Throat Lozenges (Cepastat Lozenges) 1 luis PO Q2H PRN PRN Reason: Sore Throat Zolpidem Tartrate (Ambien) 5 mg PO HSPRN PRN PRN Reason: Insomnia
[2018-07-25 10:44] LABS: Bilirubin Negative (Negative); Blood, Urine Negative (Negative); Clarity CLEAR (Clear); Glucose, Urine (Dipstick) Negative (Negative); Leukocyte Negative (Negative); Nitrite Negative (Negative); Protein, Urine (Dipstick) Negative (Neg-Trace); Specific Gravity, Urine 1.011 (1.002-1.036); Urobilinogen 0.2 mg/dL (0.2-1.0); pH, Urine 5.5 (5.0-9.0)
--- NOTE | 2018-07-25 18:39 | PRG ---
DATE OF SERVICE: 07/25/2018 SUBJECTIVE: Mr. Lazaro is still with moderate pain in the right lower extremity, but improved from before. No shortness of breath. No abdominal pain or diarrhea. OBJECTIVE: VITAL SIGNS: T-max 98.6, blood pressure 111/78, pulse 85, respirations 16, and O2 saturation 89% to 91%. GENERAL: Oriented. LUNGS: Symmetric air entry. HEART: S1 and S2. Regular rate. ABDOMEN: Soft. Right leg is still quite tender to palpation, but not as swollen. LABORATORY DATA: White cell count down to 11.9, hemoglobin 13, and platelets 187. Sodium 134 and creatinine 1.19. Liver profile normal and blood cultures with group G Streptococcus dysgalactiae, usual susceptibility profile. ASSESSMENT AND PLAN: The patient is currently on ceftriaxone. We will go and discontinue clindamycin in view of susceptibility increase, ceftriaxone to 2 g daily. Job ID: [id number]
[2018-07-25] MEDS: Atorvastatin Calcium 10 MG TAB PO SCH (21:23)
[2018-07-26] MEDS: HYDROcodone/Acetaminophen 10/325 mg Tablet PO PRN ×5 (01:25→22:12)
[2018-07-26] MEDS: cefTRIAXone\\ROCEPHIN 2 GM in Sodium Chloride 0.9% 100 ML IVPB SCH (08:52)
[2018-07-26] MEDS: Famotidine 20 MG TAB PO SCH ×2 (08:57→20:09)
[2018-07-26] MEDS: DULoxetine 60 MG CAP PO SCH (08:57)
[2018-07-26] MEDS: Raltegravir Potassium 400 MG TAB PO SCH (08:58)
[2018-07-26] MEDS: Saccharomyces boulardii 250 MG CAP PO SCH (08:58)
[2018-07-26] MEDS: Tamsulosin HCl 0.4 MG CAP PO SCH (08:58)
[2018-07-26] MEDS: Enoxaparin Sodium 40 MG/0.4 ML SYRINGE SC SCH (08:58)
--- NOTE | 2018-07-26 09:43 | PDOC.PN ---
- Subjective Encounter Start Date: 07/26/18 Encounter Start Time: 08:40 Patient seen and examined. No new complaints. No overnight events - Objective Resuscitation Status - Order Detail: 07/23/18 07:26 Resuscitation Status Routine Resuscitation Status: FULL: Full Resuscitation MAR Reviewed: Yes Vital Signs & Weight: Vital Signs (12 hours) Temp Pulse Resp BP Pulse Ox 07/26/18 07:44 98.5 F 92 18 130/76 91 L 07/26/18 06:29 92 L 07/26/18 06:27 84 16 92 L 07/26/18 04:05 95 07/26/18 03:47 98.6 F 92 18 142/86 H 91 L 07/26/18 02:07 82 18 91 L 07/25/18 22:58 98.7 F 83 16 138/83 93 L Weight Weight 199 lb 6.4 oz I&O: 07/25/18 07/26/18 07/27/18 06:59 06:59 06:59 Intake Total 2500 900 300 Balance 2500 900 300 Result Diagrams: 07/25/18 04:22 07/25/18 04:22 Phys Exam - Physical Examination Constitutional: NAD HEENT: PERRLA, moist MMs, sclera anicteric Neck: no JVD, supple Respiratory: no wheezing, no rales, no rhonchi Cardiovascular: RRR, no significant murmur, no rub Gastrointestinal: soft, non-tender, no distention, positive bowel sounds Musculoskeletal: no edema, pulses present right leg cellulitis improving Neurological: non-focal, normal sensation, moves all 4 limbs Lymphatic: no nodes Psychiatric: normal affect, A&O x 3 Skin: no rash, normal turgor Dx/Plan (1) Acute kidney injury Code(s): N17.9 - ACUTE KIDNEY FAILURE, UNSPECIFIED Status: Acute (2) Bacteremia due to Streptococcus Code(s): R78.81 - BACTEREMIA; B95.5 - UNSP STREPTOCOCCUS THE CAUSE OF DISEASES CLASSD ELSWHR Status: Acute (3) Cellulitis of extremity Code(s): L03.119 - CELLULITIS OF UNSPECIFIED PART OF LIMB Status: Acute Qualifiers: Site of cellulitis of extremity: lower extremity Laterality: right Qualified Code(s): L03.115 - Cellulitis of right lower limb Comment: ankle and foot (4) Chest pain Code(s): R07.9 - CHEST PAIN, UNSPECIFIED Status: Resolved (5) Hypotension Status: Acute (6) Lactic acidosis Code(s): E87.2 - ACIDOSIS Status: Acute (7) Sepsis with acute organ dysfunction Code(s): A41.9 - SEPSIS, UNSPECIFIED ORGANISM; R65.20 - SEVERE SEPSIS WITHOUT SEPTIC SHOCK Status: Acute (8) Dyslipidemia Code(s): E78.5 - HYPERLIPIDEMIA, UNSPECIFIED Status: Chronic (9) HIV (human immunodeficiency virus infection) Code(s): B20 - HUMAN IMMUNODEFICIENCY VIRUS [HIV] DISEASE Status: Chronic (10) Hypertension Code(s): I10 - ESSENTIAL (PRIMARY) HYPERTENSION Status: Chronic (11) Peripheral neuropathy Code(s): G62.9 - POLYNEUROPATHY, UNSPECIFIED Status: Chronic - Plan cont current plan of care, continue antibiotics * medication reviewed as below * symptomatic treatment * continue rocephin IV * will consider discharge tomorrow on oral antibiotics * pain controlled. Review of Systems - Review of Systems Eyes: negative: Pain, Vision Change, Conjunctivae Inflammation, Eyelid Inflammation, Redness, Other ENT: negative: Ear Pain, Ear Discharge, Nose Pain, Nose Discharge, Nose Congestion, Mouth Pain, Mouth Swelling, Throat Pain, Throat Swelling, Other Respiratory: negative: Cough, Dry, Shortness of Breath, Hemoptysis, SOB with Excertion, Pleuritic Pain, Sputum, Wheezing Cardiovascular: negative: chest pain, palpitations, orthopnea, paroxysmal nocturnal dyspnea, edema, light headedness, other Gastrointestinal: negative: Nausea, Vomiting, Abdominal Pain, Diarrhea, Constipation, Melena, Hematochezia, Other Genitourinary: negative: Dysuria, Frequency, Incontinence, Hematuria, Retention , Other Musculoskeletal: Leg Pain. negative: Neck Pain, Shoulder Pain, Arm Pain, Back Pain, Hand Pain, Foot Pain, Other - Medications/Allergies Allergies/Adverse Reactions: Allergies Allergy/AdvReac Type Severity Reaction Status Date / Time CHADD Inhibitors Allergy Verified 07/23/18 05:00 ibuprofen Allergy Verified 07/23/18 05:00 Sulfa (Sulfonamide Allergy Verified 07/23/18 05:00 Antibiotics) Medications: Current Medications Acetaminophen (Tylenol) 650 mg PO Q4H PRN PRN Reason: Headache/Fever/Mild Pain (1-3) Last Admin: 07/24/18 02:46 Dose: 650 mg Hydrocodone Bitart/Acetaminophen ([place] 10/325) 1 tab PO Q4H PRN PRN Reason: Moderate Pain (4-6) Last Admin: 07/26/18 05:41 Dose: 1 tab Albuterol/Ipratropium (Duoneb) 3 ml NEB [id number] [facility] Last Admin: 07/26/18 06:27 Dose: 3 ml Artificial Tears (Tears Naturale) 2 drop EA EYE PRN PRN PRN Reason: Dry Eyes Last Admin: 07/25/18 08:57 Dose: 2 drop Atorvastatin Calcium (Lipitor) 10 mg PO HS [facility] Last Admin: 07/25/18 21:23 Dose: 10 mg Bisacodyl (Dulcolax) 10 mg [place] DAILYPRN PRN PRN Reason: Constipation Bisacodyl (Dulcolax) 10 mg PO DAILYPRN PRN PRN Reason: Constipation Calcium Carbonate (Tums) 1,000 mg PO Q4H PRN PRN Reason: Heartburn or Indigestion Dapsone (Dapsone) 100 mg PO DAILY [facility] Last Admin: 07/26/18 08:57 Dose: 100 mg Duloxetine HCl (Cymbalta) 60 mg PO DAILY [facility] Last Admin: 07/26/18 08:57 Dose: 60 mg Enoxaparin Sodium (Lovenox) 40 mg SC 0900 [facility] Last Admin: 07/26/18 08:58 Dose: 40 mg Famotidine (Pepcid) 20 mg PO BID [facility] Last Admin: 07/26/18 08:57 Dose: 20 mg Guaifenesin (Robitussin Sf) 200 mg PO Q4H PRN PRN Reason: Cough Hydralazine HCl (Apresoline) 10 mg SLOW IVP Q4H PRN PRN Reason: SBP > 180 and HR < 70 Ceftriaxone Sodium 2 gm/ (Sodium Chloride) 100 mls @ 200 mls/hr IVPB 0900 [facility] Last Admin: 07/26/18 08:52 Dose: 100 mls Loperamide HCl (Imodium) 2 mg PO PRN PRN PRN Reason: Diarrhea/Loose Stools Loratadine (Claritin) 10 mg PO DAILYPRN PRN PRN Reason: Sinus Symptoms Mineral Oil/White Petrolatum (Eucerin Cream) 0 gm TOP BIDPRN PRN PRN Reason: Dry Skin Morphine Sulfate (Morphine) 4 mg SLOW IVP Q4H PRN PRN Reason: Severe Pain (7-10) Ondansetron HCl (Zofran Odt) 4 mg PO Q6H PRN PRN Reason: Nausea/Vomiting Last Admin: 07/25/18 09:32 Dose: 4 mg Ondansetron HCl (Zofran) 4 mg IVP Q6H PRN PRN Reason: Nausea/Vomiting Raltegravir (Isentress) 800 mg PO DAILY [facility] Last Admin: 07/26/18 08:58 Dose: 800 mg Ritonavir (Norvir) 100 mg PO DAILY [facility] Last Admin: 07/26/18 08:58 Dose: 100 mg Saccharomyces Boulardii (Florastor) 250 mg PO DAILY [facility] Last Admin: 07/26/18 08:58 Dose: 250 mg Senna/Docusate Sodium (Senokot S) 2 tab PO BIDPRN PRN PRN Reason: Constipation Sodium Chloride ([place] Nasal [place] 0.65%) 0 ml EA NARE QIDPRN PRN PRN Reason: Nasal Congestion Tamsulosin HCl (Flomax) 0.4 mg PO DAILY [facility] Last Admin: 07/26/18 08:58 Dose: 0.4 mg Tenofovir Disoproxil Fumarate (Viread) 300 mg PO DAILY [facility] Last Admin: 07/26/18 08:58 Dose: 300 mg Throat Lozenges (Cepastat Lozenges) 1 luis PO Q2H PRN PRN Reason: Sore Throat Zolpidem Tartrate (Ambien) 5 mg PO HSPRN PRN PRN Reason: Insomnia
[2018-07-26 14:21] LABS: %CD4 (Helper/Inducer) 9.2 % (30.8-58.5); Absolute CD4 129 /uL (359-1519); Lymphocytes/Gated Cell Count 1.4 x10E3/uL (0.7-3.1); Total Lymphocyte 9 % (Not Estab.); WBC Total Count 14.2 x10E3/uL (3.4-10.8)
[2018-07-26] MEDS: Ondansetron PF 4 MG/2 ML Vial IVP PRN (18:45)
[2018-07-26] MEDS: Atorvastatin Calcium 10 MG TAB PO SCH (20:09)
[2018-07-27] MEDS: HYDROcodone/Acetaminophen 10/325 mg Tablet PO PRN ×4 (03:26→20:28)
[2018-07-27] MEDS: cefTRIAXone\\ROCEPHIN 2 GM in Sodium Chloride 0.9% 100 ML IVPB SCH (09:30)
[2018-07-27] MEDS: DULoxetine 60 MG CAP PO SCH (09:31)
[2018-07-27] MEDS: Famotidine 20 MG TAB PO SCH ×2 (09:31→20:27)
[2018-07-27] MEDS: Enoxaparin Sodium 40 MG/0.4 ML SYRINGE SC SCH (09:31)
[2018-07-27] MEDS: Saccharomyces boulardii 250 MG CAP PO SCH (09:32)
[2018-07-27] MEDS: Tamsulosin HCl 0.4 MG CAP PO SCH (09:32)
[2018-07-27] MEDS: Raltegravir Potassium 400 MG TAB PO SCH (09:32)
[2018-07-27] MEDS: Ondansetron PF 4 MG/2 ML Vial IVP PRN (09:33)
--- NOTE | 2018-07-27 10:50 | PDOC.PN ---
- Subjective Encounter Start Date: 07/27/18 Encounter Start Time: 08:00 he has leg pain and swelling in right leg, no fever Patient seen and examined. No overnight events - Objective Resuscitation Status - Order Detail: 07/23/18 07:26 Resuscitation Status Routine Resuscitation Status: FULL: Full Resuscitation MAR Reviewed: Yes Vital Signs & Weight: Vital Signs (12 hours) Temp Pulse Resp BP Pulse Ox 07/27/18 06:42 90 14 07/27/18 05:22 98.7 F 88 18 132/86 100 07/27/18 02:17 100 07/27/18 01:36 99.1 F 91 18 109/74 94 L 07/27/18 00:34 91 16 92 L Weight Weight 199 lb 6.4 oz I&O: 07/26/18 07/27/18 07/28/18 06:59 06:59 06:59 Intake Total 900 2160 Balance 900 2160 Result Diagrams: 07/25/18 04:22 07/25/18 04:22 Phys Exam - Physical Examination Constitutional: NAD HEENT: PERRLA, moist MMs, sclera anicteric Neck: no JVD, supple Respiratory: no wheezing, no rales, no rhonchi Cardiovascular: RRR, no significant murmur, no rub Gastrointestinal: soft, non-tender, no distention, positive bowel sounds Musculoskeletal: no edema, pulses present right leg cellulitis Neurological: non-focal, normal sensation, moves all 4 limbs Lymphatic: no nodes Psychiatric: normal affect, A&O x 3 Skin: no rash, normal turgor Dx/Plan (1) Acute kidney injury Code(s): N17.9 - ACUTE KIDNEY FAILURE, UNSPECIFIED Status: Acute (2) Bacteremia due to Streptococcus Code(s): R78.81 - BACTEREMIA; B95.5 - UNSP STREPTOCOCCUS THE CAUSE OF DISEASES CLASSD ELSWHR Status: Acute (3) Cellulitis of extremity Code(s): L03.119 - CELLULITIS OF UNSPECIFIED PART OF LIMB Status: Acute Qualifiers: Site of cellulitis of extremity: lower extremity Laterality: right Qualified Code(s): L03.115 - Cellulitis of right lower limb Comment: ankle and foot (4) Chest pain Code(s): R07.9 - CHEST PAIN, UNSPECIFIED Status: Resolved (5) Hypotension Status: Acute (6) Lactic acidosis Code(s): E87.2 - ACIDOSIS Status: Acute (7) Sepsis with acute organ dysfunction Code(s): A41.9 - SEPSIS, UNSPECIFIED ORGANISM; R65.20 - SEVERE SEPSIS WITHOUT SEPTIC SHOCK Status: Acute (8) Dyslipidemia Code(s): E78.5 - HYPERLIPIDEMIA, UNSPECIFIED Status: Chronic (9) HIV (human immunodeficiency virus infection) Code(s): B20 - HUMAN IMMUNODEFICIENCY VIRUS [HIV] DISEASE Status: Chronic (10) Hypertension Code(s): I10 - ESSENTIAL (PRIMARY) HYPERTENSION Status: Chronic (11) Peripheral neuropathy Code(s): G62.9 - POLYNEUROPATHY, UNSPECIFIED Status: Chronic - Plan cont current plan of care, continue antibiotics * continue rocephin * continue pain control * keep leg elevated * medication reviewed as below * symptomatic treatment. Review of Systems - Review of Systems Eyes: negative: Pain, Vision Change, Conjunctivae Inflammation, Eyelid Inflammation, Redness, Other ENT: negative: Ear Pain, Ear Discharge, Nose Pain, Nose Discharge, Nose Congestion, Mouth Pain, Mouth Swelling, Throat Pain, Throat Swelling, Other Respiratory: negative: Cough, Dry, Shortness of Breath, Hemoptysis, SOB with Excertion, Pleuritic Pain, Sputum, Wheezing Cardiovascular: negative: chest pain, palpitations, orthopnea, paroxysmal nocturnal dyspnea, edema, light headedness, other Gastrointestinal: negative: Nausea, Vomiting, Abdominal Pain, Diarrhea, Constipation, Melena, Hematochezia, Other Genitourinary: negative: Dysuria, Frequency, Incontinence, Hematuria, Retention , Other Musculoskeletal: Leg Pain. negative: Neck Pain, Shoulder Pain, Arm Pain, Back Pain, Hand Pain, Foot Pain, Other - Medications/Allergies Allergies/Adverse Reactions: Allergies Allergy/AdvReac Type Severity Reaction Status Date / Time CHADD Inhibitors Allergy Verified 07/23/18 05:00 ibuprofen Allergy Verified 07/23/18 05:00 Sulfa (Sulfonamide Allergy Verified 07/23/18 05:00 Antibiotics) Medications: Current Medications Acetaminophen (Tylenol) 650 mg PO Q4H PRN PRN Reason: Headache/Fever/Mild Pain (1-3) Last Admin: 07/24/18 02:46 Dose: 650 mg Hydrocodone Bitart/Acetaminophen ([place] 10/325) 1 tab PO Q4H PRN PRN Reason: Moderate Pain (4-6) Last Admin: 07/27/18 09:33 Dose: 1 tab Albuterol/Ipratropium (Duoneb) 3 ml NEB [id number] [facility] Last Admin: 07/27/18 06:42 Dose: 3 ml Artificial Tears (Tears Naturale) 2 drop EA EYE PRN PRN PRN Reason: Dry Eyes Last Admin: 07/25/18 08:57 Dose: 2 drop Atorvastatin Calcium (Lipitor) 10 mg PO HS [facility] Last Admin: 07/26/18 20:09 Dose: 10 mg Bisacodyl (Dulcolax) 10 mg [place] DAILYPRN PRN PRN Reason: Constipation Bisacodyl (Dulcolax) 10 mg PO DAILYPRN PRN PRN Reason: Constipation Calcium Carbonate (Tums) 1,000 mg PO Q4H PRN PRN Reason: Heartburn or Indigestion Dapsone (Dapsone) 100 mg PO DAILY [facility] Last Admin: 07/27/18 09:31 Dose: 100 mg Duloxetine HCl (Cymbalta) 60 mg PO DAILY [facility] Last Admin: 07/27/18 09:31 Dose: 60 mg Enoxaparin Sodium (Lovenox) 40 mg SC 0900 [facility] Last Admin: 07/27/18 09:31 Dose: 40 mg Famotidine (Pepcid) 20 mg PO BID [facility] Last Admin: 07/27/18 09:31 Dose: 20 mg Guaifenesin (Robitussin Sf) 200 mg PO Q4H PRN PRN Reason: Cough Hydralazine HCl (Apresoline) 10 mg SLOW IVP Q4H PRN PRN Reason: SBP > 180 and HR < 70 Ceftriaxone Sodium 2 gm/ (Sodium Chloride) 100 mls @ 200 mls/hr IVPB 0900 [facility] Last Admin: 07/27/18 09:30 Dose: 100 mls Loperamide HCl (Imodium) 2 mg PO PRN PRN PRN Reason: Diarrhea/Loose Stools Loratadine (Claritin) 10 mg PO DAILYPRN PRN PRN Reason: Sinus Symptoms Mineral Oil/White Petrolatum (Eucerin Cream) 0 gm TOP BIDPRN PRN PRN Reason: Dry Skin Morphine Sulfate (Morphine) 4 mg SLOW IVP Q4H PRN PRN Reason: Severe Pain (7-10) Ondansetron HCl (Zofran Odt) 4 mg PO Q6H PRN PRN Reason: Nausea/Vomiting Last Admin: 07/25/18 09:32 Dose: 4 mg Ondansetron HCl (Zofran) 4 mg IVP Q6H PRN PRN Reason: Nausea/Vomiting Last Admin: 07/27/18 09:33 Dose: 4 mg Raltegravir (Isentress) 800 mg PO DAILY [facility] Last Admin: 07/27/18 09:32 Dose: 800 mg Ritonavir (Norvir) 100 mg PO DAILY [facility] Last Admin: 07/27/18 09:32 Dose: 100 mg Saccharomyces Boulardii (Florastor) 250 mg PO DAILY [facility] Last Admin: 07/27/18 09:32 Dose: 250 mg Senna/Docusate Sodium (Senokot S) 2 tab PO BIDPRN PRN PRN Reason: Constipation Sodium Chloride ([place] Nasal [place] 0.65%) 0 ml EA NARE QIDPRN PRN PRN Reason: Nasal Congestion Tamsulosin HCl (Flomax) 0.4 mg PO DAILY [facility] Last Admin: 07/27/18 09:32 Dose: 0.4 mg Tenofovir Disoproxil Fumarate (Viread) 300 mg PO DAILY [facility] Last Admin: 07/27/18 09:33 Dose: 300 mg Throat Lozenges (Cepastat Lozenges) 1 luis PO Q2H PRN PRN Reason: Sore Throat Zolpidem Tartrate (Ambien) 5 mg PO HSPRN PRN PRN Reason: Insomnia
--- NOTE | 2018-07-27 14:35 | PRG ---
DATE OF SERVICE: 07/27/2018 SUBJECTIVE: He says he feels about the same, but there is much improved appearance of the right leg, it was noted below. No abdominal pain. Had some diarrhea earlier. Voiding without difficulty. OBJECTIVE: VITAL SIGNS: Vital signs are normal except for slight tachycardia, awake, and oriented. LUNGS: Clear. HEART: S1, S2. Regular rate. EXTREMITIES: The right leg with marked decrease in swelling and erythema and tenderness. LABORATORY DATA: White cell count 11.9, hemoglobin 13.9, and platelets 187. Creatinine 1.19. CD4 cell count is 129. ASSESSMENT AND DISCUSSION: 1. Human immunodeficiency virus seropositive status, on anti-retroviral therapy with moderately low CD4 cell count. 2. Right lower extremity cellulitis, secondary to beta-hemolytic Streptococcus with marked improvement. Probably, can be switched to oral Keflex for another 2 weeks, starting tomorrow, 500 mg 4 times daily, after that penicillin VK suppressive therapy for a year. Compression stockings. Job ID: [id number]
[2018-07-27 15:20] LABS: HCV I.Units 14700000 IU/mL (.); HCV I.Units log10 7.167 (.); Hep C PCR-Quant See Final Results IU/mL (.)
[2018-07-27] MEDS: Atorvastatin Calcium 10 MG TAB PO SCH (20:28)
[2018-07-28] MEDS: HYDROcodone/Acetaminophen 10/325 mg Tablet PO PRN ×2 (00:43→10:47)
[2018-07-28] MEDS: cefTRIAXone\\ROCEPHIN 2 GM in Sodium Chloride 0.9% 100 ML IVPB SCH (08:49)
[2018-07-28] MEDS: Saccharomyces boulardii 250 MG CAP PO SCH (08:50)
[2018-07-28] MEDS: Tamsulosin HCl 0.4 MG CAP PO SCH (08:50)
[2018-07-28] MEDS: Raltegravir Potassium 400 MG TAB PO SCH (08:54)
[2018-07-28] MEDS: Enoxaparin Sodium 40 MG/0.4 ML SYRINGE SC SCH (08:55)
[2018-07-28] MEDS: Famotidine 20 MG TAB PO SCH (08:55)
[2018-07-28] MEDS: DULoxetine 60 MG CAP PO SCH (08:55)
--- NOTE | 2018-07-28 10:23 | DIS ---
DATE OF ADMISSION: 07/23/2018 DATE OF DISCHARGE: 07/28/2018 PRIMARY CARE PHYSICIAN: [facility] Call Admission. DISCHARGE DISPOSITION: Prison. PRIMARY DISCHARGE DIAGNOSES: 1. Acute kidney failure, improved. 2. Sepsis with acute organ dysfunction. 3. Bacteremia due to Streptococcus. 4. Right lower extremity cellulitis. 5. Benign enlargement of prostate with obstructive urinary symptoms. 6. Chest pain, ruled out acute coronary syndrome. SECONDARY DISCHARGE DIAGNOSES: 1. Peripheral neuropathy. 2. Hypertension. 3. Human immunodeficiency virus. 4. Dyslipidemia. 5. Chronic hepatitis C. PRIMARY PROCEDURE/OPERATION: None. RADIOLOGICAL INVESTIGATION: Chest x-ray normal. CT angio negative for PE. Ankle x-ray shows soft tissue swelling. SIGNIFICANT LABORATORY DATA: WBC 11.9, hemoglobin 13.9, and platelet 187. INR 1.1. Sodium 134, creatinine 1.19. CRP 20.67. LFT normal. Cardiac enzyme negative. Urinalysis normal. CD4 count 129. Blood culture positive for Streptococcus. Influenza negative. DISCHARGE MEDICATIONS: 1. Tylenol No. 3 one or two tablets q.6 hourly p.r.n. 2. Keflex 500 mg p.o. q.i.d. for 10 days. 3. Terazosin 2 mg p.o. daily. 4. Tenofovir disoproxil 300 mg p.o. daily. 5. Ritonavir 100 mg daily. 6. Raltegravir 400 mg two tablet daily. 7. Pravastatin 40 mg p.o. at bedtime. 8. Lasix 20 mg daily. 9. Cymbalta 60 mg p.o. daily. 10. Prezista 800 mg p.o. daily. 11. Dapsone 100 mg daily. 12. Amlodipine 5 mg p.o. daily. CONTRAINDICATION: None. CODE STATUS: Full code. INPATIENT LEASING SALES CONSULTANT: Dr. Zaldivar was following while in hospital. TEST RESULT PENDING ON DISCHARGE: None. ALLERGIES: CHADD INHIBITOR, IBUPROFEN, AND SULFA DRUGS. DISCHARGE PLAN: Post hospital, the patient will follow up with primary care physician at [facility]. HOSPITAL COURSE: A 63-year-old male, who was admitted by Dr. Barfield. Please see his H and P for further details. On admission, the patient presented to ER from [facility] with complaint of right lower extremity pain, swelling, tenderness, erythema, and high-grade fever. The patient was meeting sepsis criteria. He also had acute kidney failure. He was also complaining of chest pain. The patient was treated with IV fluid. We did CT angiography, which was negative for PE. With IV fluid, his renal function also improved. During this admission, we treated him with vancomycin and Zosyn and subsequently antibiotic changed to Rocephin only. Dr. Zaldivar was consulted while in hospital. This patient has significant improvement in his cellulitis. While in hospital, he was also having BPH symptoms that is why we started Flomax. He will continue terazosin upon discharge. The patient is seen and examined at bedside today. All review of systems reviewed with him and negative. His pain is under control. He is hemodynamically stable. PHYSICAL EXAMINATION: VITAL SIGNS: Currently, temperature 99.2, pulse 86, respiratory rate 18, saturation 97%, and blood pressure 118/75. Weight 199 pounds. GENERAL: The patient is currently alert, awake, no obvious acute distress. HEENT: Head; normocephalic, atraumatic. Eyes; pupils are round and reactive to light. Extraocular muscle intact. ENT; oropharynx within normal limits. LUNGS: Clear without any rhonchi or rales. CARDIAC: S1 and S2, regular without any murmur. ABDOMEN: Soft and benign. EXTREMITIES: No edema. His right lower extremity cellulitis is improving. NEUROLOGICAL: Nonfocal examination. Job ID: [id number]
[2018-07-28 10:40] VITALS: BP 134/78; TEMP 98.8
--- NOTE | 2018-07-28 14:59 | EKG ---
Test Reason : Blood Pressure : / mmHG Vent. Rate : 115 BPM Atrial Rate : 115 BPM P-R Int : 168 ms QRS Dur : 080 ms QT Int : 316 ms P-R-T Axes : 046 040 037 degrees QTc Int : 437 ms Sinus tachycardia No STEMI Otherwise normal ECG Confirmed by RAJESH GONZALES MD ([id number]), newspaper photo editor TATIANA ABAD ([id number]) on 07/28/2018 2:59:27 PM Referred By: Confirmed By:RAJESH GONZALES MD
== END 2018-07-28 12:03 | DRG 977 ==
LOC: ERS 00:35 → 2SE 02:10 → T4-A 07-26 12:56
PROVIDERS: ADMIT Hospitalist; ATTEND Hospitalist
DX: B20 Human immunodeficiency virus [HIV] disease (principal); A40.8 Other streptococcal sepsis; R65.20 Severe sepsis without septic shock; N17.9 Acute kidney failure, unspecified; E87.2 Acidosis; L03.115 Cellulitis of right lower limb; N13.8 Other obstructive and reflux uropathy; N40.1 Benign prostatic hyperplasia with lower urinary tract symptoms; B95.4 Other streptococcus as the cause of diseases classified elsewhere; M19.90 Unspecified osteoarthritis, unspecified site; B18.2 Chronic viral hepatitis C; I10 Essential (primary) hypertension; G62.9 Polyneuropathy, unspecified; R07.9 Chest pain, unspecified; J45.909 Unspecified asthma, uncomplicated; E78.5 Hyperlipidemia, unspecified; K21.9 Gastro-esophageal reflux disease without esophagitis; Z85.89 Personal history of malignant neoplasm of other organs and systems
CPT/HCPCS: 36415; 71045; 71275; 80048; 80053; 81003; 82533; 82553; 83605; 83690; 83880; 84484; 84550; 85025; 85048; 85610; 85730; 86140; 86361; 87040; 87077; 87149; 87186; 87522; 87804; 93005; 93010; 94640; 96365; 96367; 96375; J0696; J1650; J1885; J1956; J2405; J2543; J3370; J3490; J7050; J7620; Q0162; Q9967

== ENCOUNTER 2018-07-31 00:28 | Inpatient (IN) | payer OTHER ==
[2018-07-31] MEDS ORDERED: Piperacillin/Tazobactam 4.5 GM VIAL ONE (01:20)
[2018-07-31] MEDS ORDERED: Sodium Chloride 0.9% 100 ML ONE (01:21)
[2018-07-31 01:29] LABS: #Eosinphils 0.1 thou/uL (0.0-0.7); #Monocytes 1.5 thou/uL (0.11-0.59); #Neutrophils 7.9 thou/uL (1.40-6.50); %Basophils 0.4 % (0.0-1.0); %Eosinophils 0.6 % (0.0-10.0); %Lymphocytes 17.8 % (21.0-51.0); %Monocytes 12.9 % (0.0-10.0); %Neutrophils 68.4 % (42.0-75.0); Hemoglobin 14.4 g/dL (14.0-18.0); Mean Corpuscular HGB CONC 32.5 g/dL (32.0-36.0); Mean Corpuscular Hemoglobin 29.5 pg (27.0-31.0); Mean Corpuscular Volume 90.7 fL (78.0-98.0); Mean Platelet Volume 8.7 fL (7.4-10.4); Platelet Count 375 thou/uL (130-400); RBC Distribution Width 14.1 % (11.5-14.5); Red Blood Cell (RBC) Count 4.88 mill/uL (4.70-6.10); White Blood Cell (WBC) Count 11.5 thou/uL (4.8-10.8)
[2018-07-31 01:53] LABS: ALT (SGPT) 38 U/L (8-55); AST (SGOT) 42 U/L (5-34); Albumin 3.4 g/dL (3.4-4.8); Alkaline Phosphatase 94 U/L (40-150); Anion Gap 18 mmol/L (10-20); BUN (Urea Nitrogen) 14 mg/dL (8.4-25.7); Bilirubin, Total 0.6 mg/dL (0.2-1.2); CK (CPK) 172 U/L (30-200); Calc. Creatinine Clearance 0 mL/min (70-130); Calcium 9.3 mg/dL (7.8-10.44); Carbon Dioxide 22 mmol/L (23-31); Chloride 100 mmol/L (98-107); Estimated GFR-MDRD 87; Globulin 5.7 g/dL (2.4-3.5); Glucose 84 mg/dL (80-115); Potassium 4.6 mmol/L (3.5-5.1); Protein, Total 9.1 g/dL (5.8-8.1); Sodium 135 mmol/L (136-145)
[2018-07-31] MEDS ORDERED: Morphine 4 MG/ML VIAL ONE ×2 (02:50→04:41)
[2018-07-31] MEDS ORDERED: Ondansetron PF 4 MG/2 ML Vial ONE (02:50)
[2018-07-31] MEDS ORDERED: Aspirin Chewable 81 MG TAB ONE (04:10)
[2018-07-31 05:20] LABS: Lactic Acid 1.4 mmol/L (0.5-2.2)
--- NOTE | 2018-07-31 07:55 | RAD ---
PORTABLE CHEST 1 VIEW: Date: 07/31/18 Time: 0134 hours HISTORY: Chest pain. FINDINGS: Comparison made with exam of 07/23/18. The heart size is normal. No focal areas of consolidation, pneumothoraces, or pleural effusions seen. IMPRESSION: No acute process. POS: OFF
--- NOTE | 2018-07-31 08:34 | ULT ---
PRELIMINARY REPORT/[facility]/EMERGENTY AFTER-HOURS PROCEDURE US Duplex Right Lower Extremity Veins, Limited EXAM DATE/TIME: 07/31/2018 2:15 AM CLINICAL HISTORY: 63 years old, male; Pain and signs and symptoms; Edema, localized; Lower extremity, left; Leg, lower; Patient HX: 63/m PT presents with complaint of swelling, pain, and redness to right lower leg for e past week. Was recently admitted to the hospital for cellulitis and sepsis, discharged on monday. PT states swelling and redness have worsened TECHNIQUE: Real-time Duplex ultrasound of the Right Lower Extremity with 2-D fatima scale, color Doppler flow and spectral waveform analysis. Limited exam was focused on the right lower extremity veins. COMPARISON: No relevant prior studies available. FINDINGS: Right deep veins: Unremarkable. The common femoral, femoral, proximal profunda femoral and popliteal veins are patent without thrombus. Normal Doppler waveforms. Normal compressibility and/or augmentati on response. Right superficial veins: Unremarkable. Saphenofemoral junction is patent without thrombus. Soft tissues: Superficial edema. Lymph nodes: Mildly prominent right inguinal lymph nodes measuring up to 1.1 cm in short axis. IMPRESSION: 1. Mildly prominent right inguinal lymph nodes measuring up to 1.1 cm in short axis. 2. Superficial edema. 3. No DVT. Thank you for allowing us to participate in the care of your patient. Dictated and Authenticated by: Josue Krause MD 07/31/2018 2:59 AM Central Time ([place] & [place]) FINAL REPORT VENOUS DOPPLER ULTRASOUND OF THE RIGHT LOWER EXTREMITY: Date: 07/31/18 IMPRESSION: I agree with the preliminary report given by Alli. POS: OFF
[2018-07-31 08:44] VITALS: BMI 26.3
[2018-07-31] MEDS ORDERED: Senokot S 8.6-50 MG TAB PO PRN (08:49)
[2018-07-31] MEDS ORDERED: Ondansetron PF 4 MG/2 ML Vial IVP PRN (08:49)
[2018-07-31] MEDS ORDERED: Nitroglycerin 0.4 MG TAB (25 Tab Bottle) SL PRN (08:49)
[2018-07-31] MEDS ORDERED: Calcium Carbonate 500 MG ChewTAB PO PRN (08:49)
[2018-07-31] MEDS ORDERED: cloNIDine 0.1 MG TAB PO PRN (08:49)
[2018-07-31] MEDS ORDERED: hydrALAZINE 20 MG/ML VIAL SLOW IVP PRN (08:49)
[2018-07-31] MEDS ORDERED: Bisacodyl 5 MG TAB PO PRN (08:49)
[2018-07-31] MEDS ORDERED: DARUNAVIR ETHANOLATE PO SCH (09:00)
[2018-07-31] MEDS ORDERED: Vancomycin HCl 1 GM in Premix Bag 1 BAG IVPB SCH (09:00)
[2018-07-31] MEDS ORDERED: Raltegravir Potassium 400 MG TAB PO SCH (09:00)
[2018-07-31] MEDS ORDERED: TERAZOSIN HCL PO SCH (09:00)
[2018-07-31] MEDS ORDERED: RITONAVIR PO SCH (09:00)
[2018-07-31] MEDS ORDERED: Gadobenate Dimeglumine 529 MG/1 ML (20ML VIAL) ONE (09:35)
[2018-07-31] MEDS ORDERED: Vancomycin HCl 1.25 GM in Sodium Chloride 0.9% 250 ML 250 ML IVPB SCH (10:00)
[2018-07-31] MEDS ORDERED: Enoxaparin Sodium 40 MG/0.4 ML SYRINGE ONE (10:49)
[2018-07-31] MEDS ORDERED: Famotidine 20 MG TAB ONE (10:50)
[2018-07-31] MEDS: Enoxaparin Sodium 40 MG/0.4 ML SYRINGE SC SCH (10:52)
[2018-07-31] MEDS: Famotidine 20 MG TAB PO SCH ×2 (10:52→20:13)
[2018-07-31] MEDS: Sodium Chloride 0.9% 1,000 ML IV SCH (10:52)
--- NOTE | 2018-07-31 11:28 | HP ---
PRIMARY CARE PHYSICIAN: None. The patient is currently an inmate. CHIEF COMPLAINT: Worsening right lower extremity swelling, pain and difficulty to ambulate because of that. HISTORY OF PRESENTING ILLNESS: Mr. Lazaro is a 63-year-old Afro-Turkmen male with known history of HIV and chronic hepatitis C with poor CD4 count and no treatment of chronic hep C, who presented to the emergency room from assisted with the above-mentioned complaint. History is mainly obtained by the patient himself and extensive electronic medical records have been reviewed. Mr. Lazaro was recently admitted to our facility from 07/23/2018 through 07/28/2018. He was just discharged 3 days ago. During that hospitalization, he was diagnosed with Streptococcus bacteremia and right lower extremity cellulitis with sepsis secondary to that. He was initially treated with IV antibiotics in the hospital and Infectious Disease, Dr. Zaldivar saw the patient. He was discharged on oral Keflex with plans for prophylactic penicillin VK for long-term. The patient returned back to the ER today as his symptoms have been getting worse. He does report that he has not been able to take any of his medications since his discharge because he has to walk downstairs to get the medicines and he is not able to walk because of severe pain and swelling. He reports that his pain is really bad and the swelling is to the point where his leg has started to ooze and seep. He is feeling poorly, has some nausea, vomiting, and diarrhea as well. He has some chills without any specific fevers. He also complains of some left-sided chest pain and shortness of breath. In the emergency room, his blood pressure was 160/90 with a pulse of 91. Temperature 98.8. His right lower extremity examination showed erythema, warmth and tenderness. His Doppler ultrasound was negative for DVT, but did show some superficial erythema. He was once again given IV vancomycin and Zosyn. His lactic acid was found to be elevated. He is now being admitted to the hospital with worsening right lower extremity cellulitis. He has not taken his oral medications as prescribed because of his inability to walk. The patient was tried to be transferred to [facility] in [facility], but because of bed nonavailability, he is being admitted here. PAST MEDICAL HISTORY: 1. HIV infection, currently on therapy. Last CD4 count checked in our facility was 129. 2. Chronic hepatitis C without any history of treatment. 3. Recent streptococcal bacteremia with right lower extremity cellulitis and sepsis. 4. Hypertension. 5. History of Kaposi sarcoma. 6. Dyslipidemia. 7. Asthma. 8. Osteoarthritis. 9. Chronic low back pain. 10. GERD. PAST SURGICAL HISTORY: None. PSYCHIATRIC HISTORY: Reviewed and none. SOCIAL HISTORY: He is currently an inmate. No history of drug, alcohol abuse or illicit drug abuse. FAMILY HISTORY: He denies any strong family history of coronary artery disease, stroke, or cancer. ALLERGIES: INCLUDE CHADD INHIBITOR, IBUPROFEN, AND SULFONAMIDES. HOME MEDICATIONS: As per the discharge summary from 3 days ago. He was supposed to be on the following medications: 1. Tylenol No. 3 p.r.n. 2. Keflex 500 p.o. q.i.d. for 10 days. 3. Terazosin 2 mg p.o. daily. 4. Tenofovir 300 mg daily. 5. Ritonavir 100 mg daily. 6. Raltegravir 400 mg b.i.d. 7. Pravastatin 40 mg daily. 8. Lasix 20 mg daily. 9. Cymbalta 60 mg daily. 10. Prezista 800 mg daily. 11. Dapsone 100 mg daily. 12. Amlodipine 5 mg daily. REVIEW OF SYSTEMS: A 12-point review of system was done. It is negative except for those mentioned in the history and physical. LABORATORY DATA: His CBC shows WBCs at 11.5, which was 11.9 on 07/25/2018. Neutrophils 68%. Serum chemistries show sodium of 135, bicarb 22. His lactic acid is 2.6, which was 1.5 on 07/24/2018. Repeat lactic acid today is 1.4. Cardiac enzymes and BNP and creatine kinase are normal. His chest x-ray by my review shows no evidence of pleural effusion, edema, or infiltrate. Lower extremity Doppler ultrasound is negative for any DVT. A 12-lead EKG by my review shows normal ST-segment and T-waves and normal sinus rhythm at 90 beats per minute. QTC of 452 milliseconds. PHYSICAL EXAMINATION: VITAL SIGNS: Most recent vital signs; temperature 98.3, pulse of 81, respirations 21, saturating 99% on room air, and blood pressure 134/90. GENERAL: He is in no acute distress, but appears uncomfortable. Awake, alert, and oriented x3. HEENT: Mucous membrane is slightly dry. No oropharyngeal exudate or erythema. Head is normocephalic, atraumatic. Pupils are equal and reactive to light and accommodation. Extraocular movement intact. NECK: Supple without any lymphadenopathy, JVD, or bruit. CHEST: Clear to auscultation without any wheezing, rales, or rhonchi. HEART: Rate and rhythm are regular without any murmurs, rubs, or gallops. ABDOMEN: Soft, nontender, nondistended with positive bowel sounds. EXTREMITIES: Show induration and erythema with warmth of the right lower extremity with superficial dry skin, which has started to get excoriated. Left lower extremity examination is within normal limits. NEUROLOGICAL: Examination is nonfocal. SKIN: As above in the right lower extremity. Otherwise, no rashes or bruises. PSYCHIATRIC: Normal affect. IMPRESSION AND PLAN: 1. Recurrent and worsening of right lower extremity cellulitis with recrudescence of sepsis. The patient will be restarted on vancomycin and Zosyn. I have reviewed the microbiology results from his last hospitalization. He did have 1/2 blood cultures positive for Streptococcus dysgalactiae, which was resistant to clindamycin, but sensitive to vancomycin, Rocephin, and levofloxacin. Repeat blood cultures have been obtained in the emergency room. We will request consultation with ID, Dr. Zaldivar again. The patient's recrudescence is most likely secondary to his inability to take oral medications as prescribed. He will be started on gentle IV fluids. 2. Sepsis. This is secondary to right lower extremity cellulitis as recurrent and worsening of right lower extremity cellulitis with recrudescence of sepsis. 3. Human immunodeficiency virus infection. Restart his home medications as listed above. 4. History of chronic hepatitis C, untreated. No further intervention for now. 5. Lactic acidosis secondary to recurrent and worsening of right lower extremity cellulitis with recrudescence of sepsis. 6. Dyslipidemia. Restart his pravastatin. 7. Peripheral neuropathy. Restart Cymbalta. 8. Hypertension. We will hold the antihypertensive for now given the sepsis and the potential for low blood pressure. Add p.r.n. antihypertensives. 9. Deep venous thrombosis and gastrointestinal prophylaxis. 10. Code status. Full code. Discussed with the patient. DISPOSITION: Mr. Lazaro is currently being admitted to the hospital with failure to clear infection and sepsis with right lower extremity cellulitis. Further management will depend upon his clinical course, but the estimated length of stay at this time is at least 2-3 midnights. Job ID: [id number]
[2018-07-31] MEDS ORDERED: Piperacillin/Tazobactam 3.375 GM in Sodium Chloride 0.9% 100 ML IVPB SCH (12:00)
[2018-07-31] MEDS: DULoxetine 60 MG CAP PO SCH (12:45)
[2018-07-31] MEDS: Raltegravir Potassium 400 MG TAB PO SCH (12:45)
[2018-07-31] MEDS: Saccharomyces boulardii 250 MG CAP PO SCH (12:45)
[2018-07-31] MEDS: traMADol HCl 50 MG TAB PO PRN ×2 (13:43→17:50)
[2018-07-31] MEDS ORDERED: Clindamycin/D5W 600 MG in Premix Bag 1 BAG IVPB SCH (14:00)
[2018-07-31] MEDS: cefTRIAXone\\ROCEPHIN 2 GM in Sodium Chloride 0.9% 100 ML IVPB SCH (16:19)
--- NOTE | 2018-07-31 17:21 | MRI ---
MRI OF THE RIGHT ANKLE WITH AND WITHOUT IV CONTRAST: 07/31/18 PROVIDED CLINICAL HISTORY: Right ankle swelling for two weeks. FINDINGS: There is conspicuous signal alteration involving the subcutaneous adipose layer circumferentially abo ut the distal foreleg, extending circumferentially about the ankle joint and visualized portions of t he dorsum of the midfoot and forefoot. This is compromised of diminished signal intensity on T1 weigh rea sequences, increased signal intensity on fluid sensitive sequences and contrast enhancement. Regional marrow signal appears normal. There is no significant regional tenosynovial fluid. There is diffuse fatty infiltration of the visualized foreleg musculature with patchy signal alterati on on fluid sensitive sequences. There is no evidence for focal fluid collection to suggest abscess. The intrinsic foot musculature si gnal appears normal. No regional joint effusion is evident. Alignment appears anatomic. Joint spaces appear preserved. IMPRESSION: 1. Extensive signal abnormality involving the subcutaneous adipose layer about the visualized di stal foreleg and ankle, extending to involve the visualized portions of the dorsum of the midfoot and forefoot. This is compatible with cellulitis. There is no evidence for focal fluid collection to s uggest abscess. There is no evidence for osteomyelitis. 2. Signal abnormality involving the visualized distal foreleg musculature appears to primarily r epresent fatty infiltration. Given the signal alteration on fluid sensitive sequences, infectious lashell sitis cannot be excluded. POS: SURY
--- NOTE | 2018-07-31 17:52 | CON ---
DATE OF CONSULTATION: REASON FOR CONSULTATION: Readmission with worsening pain and swelling in right lower extremity. HISTORY OF PRESENT ILLNESS: A 63-year-old patient whom I had seen recently in July 24 when he presented with a history of chronic hep C, chronic HIV infection well controlled, and cellulitis in right lower extremity. The absolute CD4 cell count then was 129, and the hepatitis C viral load was 14,700,000 copies per mL. We do not have HIV viral load during this admission submitted. The patient was treated with Rocephin. A beta-hemolytic Streptococcus was retrieved from one set of blood cultures and eventually, he was transitioned to Keflex. After discharge, the patient kept wearing his TINA hose, but eventually he discontinued it, because he was feeling that it was cutting off circulation. He kept his TINA hose at night and did not remove it. Right now, he denies any headaches, visual symptoms, sore throat, odynophagia, or dysphagia. No cough or sputum production. No chest pain. No abdominal pain or diarrhea. Right lower extremity is quite tender, particularly range of motion of the ankle region. The other elements of his past medical history can be reviewed in my note from the last admission and those are unchanged. ALLERGIES: HIS ALLERGIES ARE THE SAME WITH CHADD INHIBITORS, IBUPROFEN, AND SULFA DRUGS. CURRENT MEDICATIONS: Include: 1. Tums. 2. Catapres. 3. Dapsone. 4. Cymbalta. 5. Lovenox. 6. Pepcid. 7. Zofran. 8. Prezista. 9. Isentress. 10. Ritonavir. 11. Tenofovir. 12. Vancomycin. 13. Zosyn. PHYSICAL EXAMINATION: VITAL SIGNS: Here in the hospital, he has been afebrile. Other vital signs are with mild elevation of systolic blood pressure. GENERAL: Appears in some distress when we touches the leg right side. HEENT: Ocular movements are unchanged. Sclerae are kind of muddy color. Oral cavity moist. NECK: Supple. LUNGS: Symmetric air entry. HEART: S1 and S2, regular rate. ABDOMEN: Soft. Not distended or tender. EXTREMITIES: Right leg is not as swollen as I had seen before, but it is quite tender to palpation particularly regular range of motion of the right ankle. The ankle is much less swollen. Pulses 1+ in dorsalis pedis. Cap refill normal. Cognitive function appears to be intact. LABORATORY DATA: White cell count 11.5, hemoglobin 14, platelets 375, 69% neutrophils, and 24% bands. Microbiology with previously noted blood culture results. ASSESSMENT: Recrudescence inflammatory changes particularly at the ankle on the right side after discharge. We will obtain an MRI of the right ankle to rule out septic arthritis. This will be done with contrast. We will also check his hepatitis C genotype in preparation for treatment. I believe the patient merits treatment to decrease the risk of further complications in the future, but this can be started after discharge. Resume Rocephin intravenously. Discontinue vancomycin and Zosyn. Job ID: [id number]
[2018-07-31] MEDS: Acetaminophen 325 MG TAB PO PRN (20:20)
[2018-07-31] MEDS: Terazosin HCl 1 MG CAP PO SCH (20:55)
[2018-08-01] MEDS: traMADol HCl 50 MG TAB PO PRN (03:12)
[2018-08-01] MEDS: Sodium Chloride 0.9% 1,000 ML IV SCH ×3 (03:14→14:57)
[2018-08-01 07:07] LABS: Hemoglobin 13.3 g/dL (14.0-18.0); Lymphocytes 25 % (21-51); MDiff Complete? YES; Mean Corpuscular HGB CONC 32.3 g/dL (32.0-36.0); Mean Corpuscular Hemoglobin 29.2 pg (27.0-31.0); Mean Corpuscular Volume 90.3 fL (78.0-98.0); Mean Platelet Volume 6.2 fL (7.4-10.4); Monocytes 6 % (0-10); Neutrophil 69 % (42-75); Platelet Count 314 thou/uL (130-400); RBC Distribution Width 13.8 % (11.5-14.5); Red Blood Cell (RBC) Count 4.56 mill/uL (4.70-6.10); White Blood Cell (WBC) Count 8.7 thou/uL (4.8-10.8)
[2018-08-01 07:10] LABS: Anion Gap 15 mmol/L (10-20); BUN (Urea Nitrogen) 9 mg/dL (8.4-25.7); Calc. Creatinine Clearance 106 mL/min (70-130); Calcium 8.8 mg/dL (7.8-10.44); Carbon Dioxide 18 mmol/L (23-31); Chloride 108 mmol/L (98-107); Estimated GFR-MDRD Greater than 90; Glucose 82 mg/dL (80-115); Potassium 4.2 mmol/L (3.5-5.1); Sodium 137 mmol/L (136-145)
[2018-08-01] MEDS: DULoxetine 60 MG CAP PO SCH (08:25)
[2018-08-01] MEDS: Famotidine 20 MG TAB PO SCH ×2 (08:25→20:34)
[2018-08-01] MEDS: Saccharomyces boulardii 250 MG CAP PO SCH (08:26)
[2018-08-01] MEDS: Raltegravir Potassium 400 MG TAB PO SCH (08:28)
[2018-08-01] MEDS: Enoxaparin Sodium 40 MG/0.4 ML SYRINGE SC SCH (08:29)
[2018-08-01] MEDS: Acetaminophen 325 MG TAB PO PRN ×3 (08:30→21:42)
[2018-08-01] MEDS ORDERED: DARUNAVIR ETHANOLATE PO SCH (09:00)
[2018-08-01] MEDS ORDERED: Trospium 20 MG TAB PO SCH (12:00)
--- NOTE | 2018-08-01 12:00 | PDOC.PN ---
- Subjective Encounter Start Date: 08/01/18 Encounter Start Time: 11:59 Subjective: c/o bad leg pain.feels weak and did not sleep well -: poor appetite - Objective MAR Reviewed: Yes Vital Signs & Weight: Vital Signs (12 hours) Temp Pulse Resp BP Pulse Ox 08/01/18 11:40 97.9 F 78 20 121/81 92 L 08/01/18 07:55 97.9 F 86 20 131/81 92 L 08/01/18 03:15 98.4 F 72 19 124/75 93 L 08/01/18 00:00 97.9 F 73 17 102/65 91 L Weight Weight 194 lb I&O: 07/31/18 08/01/18 08/02/18 06:59 06:59 06:59 Intake Total 5200 360 Output Total 1025 550 Balance 4175 -190 Result Diagrams: 08/01/18 06:22 08/01/18 06:22 Additional Labs: Microbiology 07/23/18 02:07 Nasal swab Influenza Types A,B Direct EIA - Final 07/23/18 00:52 Venous blood - Right Hand Blood Culture - Final S.dysgalactiae ssp equisimilis 07/23/18 00:52 Venous blood - Left Arm Blood Culture - Final NO GROWTH IN 5 DAYS Laboratory Tests 07/31/18 07/31/18 00:55 04:54 Lactic Acid 2.6 H 1.4 Phys Exam - Physical Examination Constitutional: NAD HEENT: PERRLA, moist MMs, sclera anicteric, oral pharynx no lesions Neck: no nodes, no JVD, supple, full ROM Respiratory: no wheezing, no rales, no rhonchi, clear to auscultation bilateral Cardiovascular: RRR, no significant murmur Gastrointestinal: soft, non-tender, no distention, positive bowel sounds Musculoskeletal: pulses present erythema and warmth better in r leg Neurological: non-focal, normal sensation, moves all 4 limbs Psychiatric: normal affect, A&O x 3 Skin: no rash Dx/Plan (1) Sepsis Code(s): A41.9 - SEPSIS, UNSPECIFIED ORGANISM Status: Acute (2) Cellulitis of extremity Code(s): L03.119 - CELLULITIS OF UNSPECIFIED PART OF LIMB Status: Acute Qualifiers: Site of cellulitis of extremity: lower extremity Laterality: right Qualified Code(s): L03.115 - Cellulitis of right lower limb Comment: ankle and foot (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 Code(s): N40.1 - BENIGN PROSTATIC HYPERPLASIA WITH LOWER URINARY TRACT SYMP; N13.8 - OTHER OBSTRUCTIVE AND REFLUX UROPATHY Status: Chronic (4) Chronic hepatitis C Code(s): B18.2 - CHRONIC VIRAL HEPATITIS C Status: Chronic (5) Dyslipidemia Code(s): E78.5 - HYPERLIPIDEMIA, UNSPECIFIED Status: Chronic (6) HIV (human immunodeficiency virus infection) Code(s): B20 - HUMAN IMMUNODEFICIENCY VIRUS [HIV] DISEASE Status: Chronic Comment: on HAART.LOW CD4 at 129 (7) Hypertension Code(s): I10 - ESSENTIAL (PRIMARY) HYPERTENSION Status: Chronic (8) Peripheral neuropathy Code(s): G62.9 - POLYNEUROPATHY, UNSPECIFIED Status: Chronic - Plan DVT proph w/SCDs add trospium for BPH symptoms.cont terazosin -: cont ABx. clinically better -: ambulate -: am labs * . Review of Systems - Review of Systems Constitutional: weakness, malaise. negative: fever, chills, sweats, other ENT: negative: Ear Pain, Ear Discharge, Nose Pain, Nose Discharge, Nose Congestion, Mouth Pain, Mouth Swelling, Throat Pain, Throat Swelling, Other Respiratory: negative: Cough, Dry, Shortness of Breath, Hemoptysis, SOB with Excertion, Pleuritic Pain, Sputum, Wheezing Cardiovascular: negative: chest pain, palpitations, orthopnea, paroxysmal nocturnal dyspnea, edema, light headedness, other Gastrointestinal: negative: Nausea, Vomiting, Abdominal Pain, Diarrhea, Constipation, Melena, Hematochezia, Other Genitourinary: negative: Dysuria, Frequency, Incontinence, Hematuria, Retention , Other Musculoskeletal: Leg Pain. negative: Neck Pain, Shoulder Pain, Arm Pain, Back Pain, Hand Pain, Foot Pain, Other Neurological: negative: Weakness, Numbness, Incoordination, Change in Speech, Confusion, Seizures, Other - Medications/Allergies Allergies/Adverse Reactions: Allergies Allergy/AdvReac Type Severity Reaction Status Date / Time CHADD Inhibitors Allergy Verified 07/23/18 05:00 ibuprofen Allergy Verified 07/23/18 05:00 Sulfa (Sulfonamide Allergy Verified 07/23/18 05:00 Antibiotics) Medications: Current Medications Acetaminophen (Tylenol) 650 mg PO Q4H PRN PRN Reason: Headache/Fever/Mild Pain (1-3) Last Admin: 08/01/18 08:30 Dose: 650 mg Bisacodyl (Dulcolax) 10 mg PO DAILYPRN PRN PRN Reason: Constipation Calcium Carbonate (Tums) 1,000 mg PO Q4H PRN PRN Reason: Heartburn or Indigestion Clonidine (Catapres) 0.1 mg PO Q4H PRN PRN Reason: SBP > _160___ Dapsone (Dapsone) 100 mg PO DAILY [facility] Last Admin: 08/01/18 08:28 Dose: 100 mg Duloxetine HCl (Cymbalta) 60 mg PO DAILY [facility] Last Admin: 08/01/18 08:25 Dose: 60 mg Enoxaparin Sodium (Lovenox) 40 mg SC 0900 [facility] Last Admin: 08/01/18 08:29 Dose: 40 mg Famotidine (Pepcid) 20 mg PO BID [facility] Last Admin: 08/01/18 08:25 Dose: 20 mg Hydralazine HCl (Apresoline) 10 mg SLOW IVP Q4H PRN PRN Reason: SBP > 180 and HR < 70 Sodium Chloride (Normal Saline 0.9%) 1,000 mls @ 75 mls/hr IV .[id number] [facility] Last Admin: 08/01/18 03:14 Dose: 1,000 mls Ceftriaxone Sodium 2 gm/ (Sodium Chloride) 100 mls @ 200 mls/hr IVPB 1500 [facility] Last Admin: 07/31/18 16:19 Dose: 100 mls Miscellaneous Medication (Pharmacy To Dose) 0 each IVPB ASDIR [facility] Morphine Sulfate (Morphine) 2 mg SLOW IVP Q4H PRN PRN Reason: Moderate to Severe Pain (6-10) Nitroglycerin (Nitrostat) 0.4 mg SL Q5MIN PRN PRN Reason: Chest Pain Ondansetron HCl (Zofran) 4 mg IVP Q6H PRN PRN Reason: Nausea/Vomiting Darunavir Ethanolate ([Prezista] 1 Tab) 0 each PO DAILY [facility] Raltegravir (Isentress) 800 mg PO DAILY [facility] Last Admin: 08/01/18 08:28 Dose: 800 mg Ritonavir (Norvir) 100 mg PO DAILY [facility] Last Admin: 08/01/18 09:32 Dose: 100 mg Saccharomyces Boulardii (Florastor) 250 mg PO DAILY [facility] Last Admin: 08/01/18 08:26 Dose: 250 mg Senna/Docusate Sodium (Senokot S) 2 tab PO BID PRN PRN Reason: Constipation Sodium Chloride (Flush - Normal Saline) 10 ml IVF Q12HR [facility] Last Admin: 08/01/18 08:30 Dose: 10 ml Sodium Chloride (Flush - Normal Saline) 10 ml IVF PRN PRN PRN Reason: Saline Flush Tenofovir Disoproxil Fumarate (Viread) 300 mg PO DAILY [facility] Last Admin: 08/01/18 08:28 Dose: 300 mg Terazosin HCl (Hytrin) 2 mg PO HS [facility] Last Admin: 07/31/18 20:55 Dose: 2 mg Tramadol HCl (Ultram) 50 mg PO Q4H PRN PRN Reason: Pain Last Admin: 08/01/18 03:12 Dose: 50 mg Trospium (Trospium) 20 mg PO BID [facility] Trospium (Trospium) 20 mg PO NOW [facility] Stop: 08/01/18 14:00
[2018-08-01] MEDS: Morphine 2 MG/ML SYRINGE SLOW IVP PRN ×2 (12:38→20:35)
[2018-08-01] MEDS: cefTRIAXone\\ROCEPHIN 2 GM in Sodium Chloride 0.9% 100 ML IVPB SCH (14:57)
[2018-08-01] MEDS: Terazosin HCl 1 MG CAP PO SCH (20:34)
[2018-08-01] MEDS: Trospium 20 MG TAB PO SCH (20:34)
[2018-08-01] MEDS ORDERED: Tamsulosin HCl 0.4 MG CAP PO SCH (21:00)
[2018-08-02] MEDS: traMADol HCl 50 MG TAB PO PRN ×2 (00:49→11:40)
[2018-08-02] MEDS: Morphine 2 MG/ML SYRINGE SLOW IVP PRN ×4 (04:06→20:25)
[2018-08-02] MEDS: Sodium Chloride 0.9% 1,000 ML IV SCH (04:08)
[2018-08-02 07:04] LABS: Anion Gap 13 mmol/L (10-20); BUN (Urea Nitrogen) 12 mg/dL (8.4-25.7); Calc. Creatinine Clearance 111 mL/min (70-130); Carbon Dioxide 22 mmol/L (23-31); Chloride 106 mmol/L (98-107); Estimated GFR-MDRD Greater than 90; Glucose 86 mg/dL (80-115); Potassium 4.6 mmol/L (3.5-5.1); Sodium 136 mmol/L (136-145)
[2018-08-02] MEDS: DULoxetine 60 MG CAP PO SCH (08:17)
[2018-08-02] MEDS: Trospium 20 MG TAB PO SCH ×2 (08:17→20:25)
[2018-08-02] MEDS: Saccharomyces boulardii 250 MG CAP PO SCH (08:17)
[2018-08-02] MEDS: Famotidine 20 MG TAB PO SCH ×2 (08:18→20:25)
[2018-08-02] MEDS: Raltegravir Potassium 400 MG TAB PO SCH (08:20)
[2018-08-02] MEDS: Enoxaparin Sodium 40 MG/0.4 ML SYRINGE SC SCH (08:21)
[2018-08-02] MEDS ORDERED: Lidocaine 5% Patch TD SCH (12:45)
--- NOTE | 2018-08-02 14:14 | PDOC.PN ---
- Subjective Encounter Start Date: 08/02/18 Encounter Start Time: 14:13 Subjective: c/o perisistent pain in R leg.no fever/chills -: no CP/SOB/N/V/D.urinary frequency but urinating easier now - Objective MAR Reviewed: Yes Vital Signs & Weight: Vital Signs (12 hours) Temp Pulse Resp BP Pulse Ox 08/02/18 11:22 98.5 F 86 18 150/90 H 98 08/02/18 07:51 98.4 F 87 16 154/97 H 98 08/02/18 04:00 98.5 F 77 18 132/84 92 L Weight Weight 194 lb I&O: 08/01/18 08/02/18 08/03/18 06:59 06:59 06:59 Intake Total 5200 3890 Output Total 1025 1510 Balance 4175 2380 Result Diagrams: 08/01/18 06:22 08/02/18 06:13 Additional Labs: Microbiology 07/23/18 02:07 Nasal swab Influenza Types A,B Direct EIA - Final 07/23/18 00:52 Venous blood - Right Hand Blood Culture - Final S.dysgalactiae ssp equisimilis 07/23/18 00:52 Venous blood - Left Arm Blood Culture - Final NO GROWTH IN 5 DAYS 07/31/18 01:33 Venous blood - Left Hand Blood Culture - Preliminary Specimen has been received and culture in progress. No Growth to date. 07/31/18 01:33 Venous blood - Left Hand Blood Culture - Preliminary NO GROWTH AT 48 HOURS 07/31/18 01:33 Venous blood - Left Arm Blood Culture - Preliminary Specimen has been received and culture in progress. No Growth to date. 07/31/18 01:33 Venous blood - Left Arm Blood Culture - Preliminary NO GROWTH AT 48 HOURS Phys Exam - Physical Examination Constitutional: NAD walking slowly w dragging R leg HEENT: PERRLA, moist MMs, TM's clear, oral pharynx no lesions Neck: no nodes, no JVD, supple, full ROM Respiratory: no wheezing, no rales, no rhonchi, clear to auscultation bilateral Cardiovascular: RRR, no significant murmur Gastrointestinal: soft, non-tender, no distention, positive bowel sounds Musculoskeletal: pulses present, edema present leg erythema and swelling only slightly better Neurological: non-focal, normal sensation, moves all 4 limbs Psychiatric: normal affect, A&O x 3 Skin: no rash Dx/Plan (1) Sepsis Code(s): A41.9 - SEPSIS, UNSPECIFIED ORGANISM Status: Acute (2) Cellulitis of extremity Code(s): L03.119 - CELLULITIS OF UNSPECIFIED PART OF LIMB Status: Acute Qualifiers: Site of cellulitis of extremity: lower extremity Laterality: right Qualified Code(s): L03.115 - Cellulitis of right lower limb Comment: ankle and foot (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 Code(s): N40.1 - BENIGN PROSTATIC HYPERPLASIA WITH LOWER URINARY TRACT SYMP; N13.8 - OTHER OBSTRUCTIVE AND REFLUX UROPATHY Status: Chronic Comment: started on Terazosin and trospium (4) Chronic hepatitis C Code(s): B18.2 - CHRONIC VIRAL HEPATITIS C Status: Chronic Comment: no Rx received so far (5) Dyslipidemia Code(s): E78.5 - HYPERLIPIDEMIA, UNSPECIFIED Status: Chronic (6) HIV (human immunodeficiency virus infection) Code(s): B20 - HUMAN IMMUNODEFICIENCY VIRUS [HIV] DISEASE Status: Chronic Comment: on HAART.LOW CD4 at 129 (7) Hypertension Code(s): I10 - ESSENTIAL (PRIMARY) HYPERTENSION Status: Chronic (8) Peripheral neuropathy Code(s): G62.9 - POLYNEUROPATHY, UNSPECIFIED Status: Chronic - Plan DVT proph w/SCDs add neurontin and titrate to effect.add lidocaine patch.minimize narcotics -: cont empiric ABx. no evidence clinically for compartment syndrome -: home meds as below -: walker script written for assisted.discussed about getting meds w Captain -: amlabs. clinically better.MRI shows myositis and cellulitis * . Review of Systems - Review of Systems Constitutional: weakness, malaise. negative: fever, chills, sweats, other Respiratory: negative: Cough, Dry, Shortness of Breath, Hemoptysis, SOB with Excertion, Pleuritic Pain, Sputum, Wheezing Cardiovascular: negative: chest pain, palpitations, orthopnea, paroxysmal nocturnal dyspnea, edema, light headedness, other Gastrointestinal: negative: Nausea, Vomiting, Abdominal Pain, Diarrhea, Constipation, Melena, Hematochezia, Other Genitourinary: negative: Dysuria, Frequency, Incontinence, Hematuria, Retention , Other Musculoskeletal: Leg Pain. negative: Neck Pain, Shoulder Pain, Arm Pain, Back Pain, Hand Pain, Foot Pain, Other Neurological: negative: Weakness, Numbness, Incoordination, Change in Speech, Confusion, Seizures, Other - Medications/Allergies Allergies/Adverse Reactions: Allergies Allergy/AdvReac Type Severity Reaction Status Date / Time CHADD Inhibitors Allergy Verified 07/23/18 05:00 ibuprofen Allergy Verified 07/23/18 05:00 Sulfa (Sulfonamide Allergy Verified 07/23/18 05:00 Antibiotics) Medications: Current Medications Acetaminophen (Tylenol) 650 mg PO Q4H PRN PRN Reason: Headache/Fever/Mild Pain (1-3) Last Admin: 08/01/18 21:42 Dose: 650 mg Bisacodyl (Dulcolax) 10 mg PO DAILYPRN PRN PRN Reason: Constipation Calcium Carbonate (Tums) 1,000 mg PO Q4H PRN PRN Reason: Heartburn or Indigestion Clonidine (Catapres) 0.1 mg PO Q4H PRN PRN Reason: SBP > _160___ Dapsone (Dapsone) 100 mg PO DAILY [facility] Last Admin: 08/02/18 08:19 Dose: 100 mg Duloxetine HCl (Cymbalta) 60 mg PO DAILY [facility] Last Admin: 08/02/18 08:17 Dose: 60 mg Enoxaparin Sodium (Lovenox) 40 mg SC 0900 [facility] Last Admin: 08/02/18 08:21 Dose: 40 mg Famotidine (Pepcid) 20 mg PO BID [facility] Last Admin: 08/02/18 08:18 Dose: 20 mg Gabapentin (Neurontin) 100 mg PO TID [facility] Hydralazine HCl (Apresoline) 10 mg SLOW IVP Q4H PRN PRN Reason: SBP > 180 and HR < 70 Ceftriaxone Sodium 2 gm/ (Sodium Chloride) 100 mls @ 200 mls/hr IVPB 1500 [facility] Last Admin: 08/01/18 14:57 Dose: 100 mls Lidocaine (Lidoderm 5% Patch) 1 patch TD DAILY [facility] Lidocaine (Lidoderm 5% Patch) 1 patch TD NOW [facility] Stop: 08/02/18 14:45 Miscellaneous Medication (Pharmacy To Dose) 0 each IVPB ASDIR [facility] Miscellaneous Medication (Lidocaine Patch Removal) 1 each TOP 2100 [facility] Morphine Sulfate (Morphine) 2 mg SLOW IVP Q4H PRN PRN Reason: Moderate to Severe Pain (6-10) Last Admin: 08/02/18 08:25 Dose: 2 mg Nitroglycerin (Nitrostat) 0.4 mg SL Q5MIN PRN PRN Reason: Chest Pain Ondansetron HCl (Zofran) 4 mg IVP Q6H PRN PRN Reason: Nausea/Vomiting Darunavir Ethanolate ([Prezista] 1 Tab) 0 each PO DAILY [facility] Raltegravir (Isentress) 800 mg PO DAILY [facility] Last Admin: 08/02/18 08:20 Dose: 800 mg Ritonavir (Norvir) 100 mg PO DAILY [facility] Last Admin: 08/02/18 08:21 Dose: 100 mg Saccharomyces Boulardii (Florastor) 250 mg PO DAILY [facility] Last Admin: 08/02/18 08:17 Dose: 250 mg Senna/Docusate Sodium (Senokot S) 2 tab PO BID PRN PRN Reason: Constipation Sodium Chloride (Flush - Normal Saline) 10 ml IVF Q12HR [facility] Last Admin: 08/02/18 08:21 Dose: 10 ml Sodium Chloride (Flush - Normal Saline) 10 ml IVF PRN PRN PRN Reason: Saline Flush Tenofovir Disoproxil Fumarate (Viread) 300 mg PO DAILY [facility] Last Admin: 08/02/18 08:20 Dose: 300 mg Terazosin HCl (Hytrin) 2 mg PO HS [facility] Last Admin: 08/01/18 20:34 Dose: 2 mg Tramadol HCl (Ultram) 50 mg PO Q4H PRN PRN Reason: Pain Last Admin: 08/02/18 11:40 Dose: 50 mg Trospium (Trospium) 20 mg PO BID [facility] Last Admin: 08/02/18 08:17 Dose: 20 mg
[2018-08-02] MEDS: cefTRIAXone\\ROCEPHIN 2 GM in Sodium Chloride 0.9% 100 ML IVPB SCH (14:20)
[2018-08-02] MEDS: Gabapentin 100 MG CAP PO SCH ×2 (14:21→20:25)
--- NOTE | 2018-08-02 18:23 | PRG ---
DATE OF SERVICE: 08/02/2018 SUBJECTIVE: Mr. Lazaro still with pain in the right leg, some urinary frequency. No chest pain. No abdominal pain or diarrhea. OBJECTIVE: VITAL SIGNS: T-max 98.5, blood pressure 130/90, pulse 89, respirations 16, O2 saturation 100%. GENERAL: Awake, alert and oriented. LUNGS: Clear. HEART: S1 and S2, regular rate. ABDOMEN: Soft, not distended. EXTREMITIES: Right leg with less swelling, still with pain on range of motion of the right ankle, but less swelling in the right ankle. LABORATORY DATA: White cell count 8.7, hemoglobin 13.3, platelets 314. Chemistry not remarkable. Repeat blood cultures, no growth. Lower extremity MRI showed extensive signal abnormality suggestive of cellulitis, maybe a little myositis as well. No evidence of abscess. ASSESSMENT AND DISCUSSION: Recrudescence inflammatory changes in the right lower extremity, particularly ankle. No evidence of septic arthritis or abscess. Continue antimicrobial therapy, eventual transition to oral treatment for discharge planning. Job ID: [id number]
[2018-08-02] MEDS: Lidocaine Patch Removal 1 EACH TOP SCH (20:26)
[2018-08-02] MEDS: Terazosin HCl 1 MG CAP PO SCH (20:29)
[2018-08-03] MEDS: traMADol HCl 50 MG TAB PO PRN ×3 (04:42→20:12)
[2018-08-03] MEDS: Enoxaparin Sodium 40 MG/0.4 ML SYRINGE SC SCH (08:32)
[2018-08-03] MEDS: DULoxetine 60 MG CAP PO SCH (08:32)
[2018-08-03] MEDS: Lidocaine 5% Patch TD SCH (08:33)
[2018-08-03] MEDS: Gabapentin 100 MG CAP PO SCH ×3 (08:33→20:13)
[2018-08-03] MEDS: Raltegravir Potassium 400 MG TAB PO SCH (08:33)
[2018-08-03] MEDS: Famotidine 20 MG TAB PO SCH ×2 (08:33→20:13)
[2018-08-03] MEDS: Saccharomyces boulardii 250 MG CAP PO SCH (08:34)
[2018-08-03] MEDS: Morphine 2 MG/ML SYRINGE SLOW IVP PRN ×2 (08:35→17:45)
[2018-08-03] MEDS: Trospium 20 MG TAB PO SCH ×2 (08:35→20:13)
[2018-08-03 09:51] LABS: #Eosinphils 0.1 thou/uL (0.0-0.7); #Lymphocytes 1.9 thou/uL (1.20-3.40); #Monocytes 0.8 thou/uL (0.11-0.59); #Neutrophils 8.9 thou/uL (1.40-6.50); %Basophils 0.1 % (0.0-1.0); %Eosinophils 0.8 % (0.0-10.0); %Lymphocytes 15.8 % (21.0-51.0); %Monocytes 7.1 % (0.0-10.0); %Neutrophils 76.2 % (42.0-75.0); Hemoglobin 12.5 g/dL (14.0-18.0); Mean Corpuscular HGB CONC 31.7 g/dL (32.0-36.0); Mean Corpuscular Hemoglobin 28.9 pg (27.0-31.0); Mean Platelet Volume 5.8 fL (7.4-10.4); Platelet Count 614 thou/uL (130-400); RBC Distribution Width 13.6 % (11.5-14.5); Red Blood Cell (RBC) Count 4.34 mill/uL (4.70-6.10); White Blood Cell (WBC) Count 11.7 thou/uL (4.8-10.8)
[2018-08-03 10:07] LABS: Anion Gap 11 mmol/L (10-20); BUN (Urea Nitrogen) 17 mg/dL (8.4-25.7); Calc. Creatinine Clearance 95 mL/min (70-130); Calcium 9.2 mg/dL (7.8-10.44); Carbon Dioxide 26 mmol/L (23-31); Chloride 102 mmol/L (98-107); Estimated GFR-MDRD 90; Glucose 88 mg/dL (80-115); Sodium 134 mmol/L (136-145)
--- NOTE | 2018-08-03 12:29 | PDOC.PN ---
- Subjective Encounter Start Date: 08/03/18 Encounter Start Time: 12:27 Subjective: feels better.leg pain better controlled now but still weak - Objective MAR Reviewed: Yes Vital Signs & Weight: Vital Signs (12 hours) Temp Pulse Resp BP Pulse Ox 08/03/18 11:49 99.1 F 88 18 121/81 92 L 08/03/18 08:30 90 L 08/03/18 07:52 98.3 F 85 18 126/86 90 L Weight Weight 194 lb I&O: 08/02/18 08/03/18 08/04/18 06:59 06:59 06:59 Intake Total 3890 2220 Output Total 1510 980 Balance 2380 1240 Result Diagrams: 08/03/18 09:26 08/03/18 09:26 Additional Labs: Microbiology 07/31/18 01:33 Venous blood - Left Hand Blood Culture - Preliminary NO GROWTH AT 48 HOURS 07/31/18 01:33 Venous blood - Left Arm Blood Culture - Preliminary NO GROWTH AT 48 HOURS Phys Exam - Physical Examination Constitutional: NAD HEENT: PERRLA, moist MMs, sclera anicteric, oral pharynx no lesions Neck: no nodes, no JVD, supple, full ROM Respiratory: no wheezing, no rales, no rhonchi Cardiovascular: RRR, no significant murmur, no rub Gastrointestinal: soft, non-tender, no distention, positive bowel sounds Musculoskeletal: pulses present, edema present erythema and swelling better Neurological: non-focal, normal sensation, moves all 4 limbs Psychiatric: normal affect, A&O x 3 Skin: no rash Dx/Plan (1) Sepsis Code(s): A41.9 - SEPSIS, UNSPECIFIED ORGANISM Status: Acute (2) Cellulitis of extremity Code(s): L03.119 - CELLULITIS OF UNSPECIFIED PART OF LIMB Status: Acute Qualifiers: Site of cellulitis of extremity: lower extremity Laterality: right Qualified Code(s): L03.115 - Cellulitis of right lower limb Comment: ankle and foot (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 Code(s): N40.1 - BENIGN PROSTATIC HYPERPLASIA WITH LOWER URINARY TRACT SYMP; N13.8 - OTHER OBSTRUCTIVE AND REFLUX UROPATHY Status: Chronic Comment: started on Terazosin and trospium (4) Chronic hepatitis C Code(s): B18.2 - CHRONIC VIRAL HEPATITIS C Status: Chronic Comment: no Rx received so far (5) Dyslipidemia Code(s): E78.5 - HYPERLIPIDEMIA, UNSPECIFIED Status: Chronic (6) HIV (human immunodeficiency virus infection) Code(s): B20 - HUMAN IMMUNODEFICIENCY VIRUS [HIV] DISEASE Status: Chronic Comment: on HAART.LOW CD4 at 129 (7) Hypertension Code(s): I10 - ESSENTIAL (PRIMARY) HYPERTENSION Status: Chronic (8) Peripheral neuropathy Code(s): G62.9 - POLYNEUROPATHY, UNSPECIFIED Status: Chronic - Plan continue antibiotics, PT/OT, out of bed/ambulate, DVT proph w/SCDs cont ABx. all Cx negative. final per ID -: increase neurontin .cont lidocaine patch.no DVT on scan -: clinically beter .may DC later today if OK w ID * . Review of Systems - Review of Systems Constitutional: weakness, malaise. negative: fever, chills, sweats, other Respiratory: negative: Cough, Dry, Shortness of Breath, Hemoptysis, SOB with Excertion, Pleuritic Pain, Sputum, Wheezing Cardiovascular: negative: chest pain, palpitations, orthopnea, paroxysmal nocturnal dyspnea, edema, light headedness, other Gastrointestinal: negative: Nausea, Vomiting, Abdominal Pain, Diarrhea, Constipation, Melena, Hematochezia, Other Genitourinary: Frequency Musculoskeletal: Leg Pain Skin: negative: Rash, Lesions, Jovany, Bruising, Other - Medications/Allergies Allergies/Adverse Reactions: Allergies Allergy/AdvReac Type Severity Reaction Status Date / Time CHADD Inhibitors Allergy Verified 07/23/18 05:00 ibuprofen Allergy Verified 07/23/18 05:00 Sulfa (Sulfonamide Allergy Verified 07/23/18 05:00 Antibiotics) Medications: Current Medications Acetaminophen (Tylenol) 650 mg PO Q4H PRN PRN Reason: Headache/Fever/Mild Pain (1-3) Last Admin: 08/01/18 21:42 Dose: 650 mg Bisacodyl (Dulcolax) 10 mg PO DAILYPRN PRN PRN Reason: Constipation Calcium Carbonate (Tums) 1,000 mg PO Q4H PRN PRN Reason: Heartburn or Indigestion Clonidine (Catapres) 0.1 mg PO Q4H PRN PRN Reason: SBP > _160___ Dapsone (Dapsone) 100 mg PO DAILY [facility] Last Admin: 08/03/18 08:32 Dose: 100 mg Duloxetine HCl (Cymbalta) 60 mg PO DAILY [facility] Last Admin: 08/03/18 08:32 Dose: 60 mg Enoxaparin Sodium (Lovenox) 40 mg SC 0900 [facility] Last Admin: 08/03/18 08:32 Dose: 40 mg Famotidine (Pepcid) 20 mg PO BID [facility] Last Admin: 08/03/18 08:33 Dose: 20 mg Gabapentin (Neurontin) 100 mg PO TID [facility] Last Admin: 08/03/18 08:33 Dose: 100 mg Hydralazine HCl (Apresoline) 10 mg SLOW IVP Q4H PRN PRN Reason: SBP > 180 and HR < 70 Ceftriaxone Sodium 2 gm/ (Sodium Chloride) 100 mls @ 200 mls/hr IVPB 1500 [facility] Last Admin: 08/02/18 14:20 Dose: 100 mls Lidocaine (Lidoderm 5% Patch) 1 patch TD DAILY [facility] Last Admin: 08/03/18 08:33 Dose: 1 patch Miscellaneous Medication (Pharmacy To Dose) 0 each IVPB ASDIR [facility] Miscellaneous Medication (Lidocaine Patch Removal) 1 each TOP 2100 [facility] Last Admin: 08/02/18 20:26 Dose: Not Given Morphine Sulfate (Morphine) 2 mg SLOW IVP Q4H PRN PRN Reason: Moderate to Severe Pain (6-10) Last Admin: 08/03/18 08:35 Dose: 2 mg Nitroglycerin (Nitrostat) 0.4 mg SL Q5MIN PRN PRN Reason: Chest Pain Ondansetron HCl (Zofran) 4 mg IVP Q6H PRN PRN Reason: Nausea/Vomiting Darunavir Ethanolate ([Prezista] 1 Tab) 0 each PO DAILY [facility] Raltegravir (Isentress) 800 mg PO DAILY [facility] Last Admin: 08/03/18 08:33 Dose: 800 mg Ritonavir (Norvir) 100 mg PO DAILY [facility] Last Admin: 08/03/18 08:34 Dose: 100 mg Saccharomyces Boulardii (Florastor) 250 mg PO DAILY [facility] Last Admin: 08/03/18 08:34 Dose: 250 mg Senna/Docusate Sodium (Senokot S) 2 tab PO BID PRN PRN Reason: Constipation Sodium Chloride (Flush - Normal Saline) 10 ml IVF Q12HR [facility] Last Admin: 08/03/18 08:34 Dose: 10 ml Sodium Chloride (Flush - Normal Saline) 10 ml IVF PRN PRN PRN Reason: Saline Flush Tenofovir Disoproxil Fumarate (Viread) 300 mg PO DAILY [facility] Last Admin: 08/03/18 08:35 Dose: 300 mg Terazosin HCl (Hytrin) 2 mg PO HS [facility] Last Admin: 08/02/18 20:29 Dose: 2 mg Tramadol HCl (Ultram) 50 mg PO Q4H PRN PRN Reason: Pain Last Admin: 08/03/18 04:42 Dose: 50 mg Trospium (Trospium) 20 mg PO BID [facility] Last Admin: 08/03/18 08:35 Dose: 20 mg
[2018-08-03] MEDS: cefTRIAXone\\ROCEPHIN 2 GM in Sodium Chloride 0.9% 100 ML IVPB SCH (14:53)
[2018-08-03] MEDS: Lidocaine Patch Removal 1 EACH TOP SCH (20:13)
[2018-08-03] MEDS: Terazosin HCl 1 MG CAP PO SCH (20:13)
[2018-08-04] MEDS: Morphine 2 MG/ML SYRINGE SLOW IVP PRN ×2 (04:31→11:28)
[2018-08-04] MEDS: Raltegravir Potassium 400 MG TAB PO SCH (08:37)
[2018-08-04] MEDS: Gabapentin 100 MG CAP PO SCH (08:37)
[2018-08-04] MEDS: Lidocaine 5% Patch TD SCH (08:37)
[2018-08-04] MEDS: DULoxetine 60 MG CAP PO SCH (08:37)
[2018-08-04] MEDS: Famotidine 20 MG TAB PO SCH (08:37)
[2018-08-04] MEDS: Enoxaparin Sodium 40 MG/0.4 ML SYRINGE SC SCH (08:37)
[2018-08-04] MEDS: Saccharomyces boulardii 250 MG CAP PO SCH (08:38)
[2018-08-04] MEDS: Trospium 20 MG TAB PO SCH (08:38)
[2018-08-04 11:44] VITALS: BP 120/81; TEMP 98.4
--- NOTE | 2018-08-04 16:17 | DIS ---
DATE OF ADMISSION: 07/31/2018 DATE OF DISCHARGE: 08/04/2018 CONDITION: At the time of discharge, stable. DISCHARGE DISPOSITION: Back to correction or long-term. DISCHARGE DIAGNOSES: 1. Recrudescence of right lower extremity cellulitis due to noncompliance with medication. 2. Sepsis secondary to #1. 3. History of benign prostatic hyperplasia. 4. Chronic hepatitis C without any treatment. 5. Dyslipidemia. 6. Human immunodeficiency virus status, compliant with medications, CD4 count 129. 7. Hypertension. 8. Peripheral neuropathy. DISCHARGE MEDICATIONS: 1. Keflex 500 mg p.o. q.i.d. for 2 weeks. 2. Penicillin VK 250 mg p.o. b.i.d. for 1 year. 3. Florastor 250 mg daily for 1 month. 4. New medications, trospium 20 mg p.o. b.i.d. and lidocaine patch 1 daily as needed. 5. Neurontin 200 mg p.o. t.i.d. 6. Resume home medication as per the HPI. No changes were made. IN-HOUSE CONSULTATION: Infectious Disease, Kris Zaldivar MD PROCEDURES DONE IN THE HOSPITAL: Lower extremity ultrasound, which is negative for any deep venous thrombosis. MRI of the right lower extremity, which shows extensive subcutaneous soft tissue involvement with cellulitis and underlying myositis without evidence of osteomyelitis. HISTORY OF PRESENTING ILLNESS: Mr. Lazaro is a 63-year-old male, who was recently admitted to our facility and treated for right lower extremity cellulitis and was discharged on Keflex back to long-term, who presented with worsening right lower extremity swelling, pain, and redness. He was found to have recrudescence of right lower extremity cellulitis. He gave history that because of the severe pain, he did not go to get his medications, which are dispensed by the commercial escrow officer and he has to walk there. He was not able to walk that distance and missed his medications. Upon presentation, he was somewhat tachycardic. Doppler ultrasound was negative for DVT. He was started on empiric IV antibiotics and was admitted for recurrent worsening of right lower extremity cellulitis and sepsis. Please see the patient's history and physical for further details. HOSPITAL COURSE: Dr. Zaldivar has seen him during last hospitalization, so he was reconsulted and he ordered an MRI of the leg, which showed extensive cellulitis and myositis without any bone involvement. The patient had slow recovery in his symptoms. He was continued on IV antibiotics and cultures were recent and they were negative. Please note that this patient has had a positive blood culture during his last hospitalization with Streptococcus dysgalactiae on 07/23/2018. It was sensitive to Rocephin and vancomycin. Eventually, the patient had improvement in his symptoms and he was transitioned to oral antibiotics. He was also started on Neurontin and the dose was increased because of persistent right lower extremity pain, which was thought due to be secondary to peripheral neuropathy. He already is on Cymbalta from his long-term doctor. He had significant symptoms of BPH. He was started on Flomax during his last hospitalization and trospium was added this hospitalization with improvement in his symptoms. As of this morning, he is back to his baseline. His pain is under control and cellulitis is improving. He will be discharged back to long-term on oral antibiotic as above as per Dr. Zaldivar's recommendations. He was seen and examined prior to discharge. DISCHARGE PHYSICAL EXAMINATION: VITAL SIGNS: This morning, vital signs stable. Temperature 98.4, pulse of 89, and blood pressure 120/81. GENERAL: No acute distress. EXTREMITIES: Right lower extremity erythema and swelling has much improved. LABORATORY DATA: Repeat blood cultures at this time are negative. Serum chemistry is stable. TIME SPENT: Total time spent in the discharge, 32 minutes. Job ID: [id number]
== END 2018-08-04 13:11 | DRG 975 ==
LOC: EEVIPCON 00:28 → ERS 00:28 → ERHOLD 04:04 → T4-B 12:45
PROVIDERS: ADMIT Family Medicine; ATTEND Family Medicine
DX: A41.9 Sepsis, unspecified organism (principal); B20 Human immunodeficiency virus [HIV] disease; L03.115 Cellulitis of right lower limb; E87.2 Acidosis; N13.8 Other obstructive and reflux uropathy; B18.2 Chronic viral hepatitis C; E78.5 Hyperlipidemia, unspecified; J45.909 Unspecified asthma, uncomplicated; M19.90 Unspecified osteoarthritis, unspecified site; G62.9 Polyneuropathy, unspecified; G89.29 Other chronic pain; M54.5 Low back pain; N40.1 Benign prostatic hyperplasia with lower urinary tract symptoms; K21.9 Gastro-esophageal reflux disease without esophagitis; I10 Essential (primary) hypertension; Z91.14 Patient's other noncompliance with medication regimen; Z88.6 Allergy status to analgesic agent; Z88.2 Allergy status to sulfonamides; Z79.899 Other long term (current) drug therapy
CPT/HCPCS: 36415; 71045; 80048; 80053; 82550; 83605; 83880; 84484; 85025; 87040; 93005; 96361; 96365; 96367; 96375; 96376; A9577; J0696; J1650; J2270; J2405; J2543; J3370; J7050